=== PATIENT | male | born 1925 | race Caucasian/White ===

== ENCOUNTER 2016-12-20 14:19 | Inpatient (IN) | payer MEDICARE ==
[~2016-12-20] VITALS: Ht 170.2 cm; Wt 85.5 kg
[2016-12-20] VITALS (10 sets, daily range): BP systolic 104–129; BP diastolic 51–80
[~2016-12-20 14:19] MED LIST: ACET-77 PO; AMLO5TAB2 PO; LISI-552 PO; Lisinopril PO; METO-270 PO; Metoprolol Succinate PO; TOLT4CAP13 PO
--- OUTSIDE RECORDS SUMMARY | 2016-12-20 16:08 | XMS REPORT | Continuity of Care Document ---
Author Author [facility] Organization [facility] Address Unknown Phone Unavailable Care Team Providers Care Administrative Services Director Name Role Phone TIMMY RUTLEDGE MD PCP Insurance Providers Payer Name Policy Number Subscriber Name Relationship Self Pay Advance Directives Directive Response Recorded Date/Time Advance Directives Yes 11/07/14 3:40pm Health Care Power of Commercial Pilot Yes 11/07/14 3:40pm Organ Donor No 11/07/14 3:40pm Resuscitation Status DNR-Pt Request 11/07/14 3:40pm Problems No known problems or medical conditions. Medications No known medications. Social History Social History Problem Response Recorded Date/Time Alcohol Use Denies Use 11/07/2014 3:40pm Recreational Drug Use No 11/07/2014 3:40pm Recent Foreign Travel No 11/07/2014 3:32pm Smoking Status Former Smoker 11/07/2014 3:40pm Query Response Start Date Stop Date Smoking Status Former Smoker 11/13/1947 Hospital Discharge Instructions No hospital discharge instructions. Plan of Care No plan of care. Functional Status No functional status results. Allergies, Adverse Reactions, Alerts Allergen Type Severity Reaction Status Last Updated No Known Drug Allergies Active 01/19/09 Immunizations Name Given Type Tetanus Booster (TDap) Unknown Historical Vital Signs Acute Vital Signs Vital Response Date/Time Temperature (Fahrenheit) 99 degrees F (97.6 - 99.5) Temperature (Calculated Celsius) 37.2252 degrees C (36.4 - 37.5) Temperature Source Temporal Pulse Rate (adult) 75 bpm (60 - 90) Respiratory Rate 16 bpm (12 - 24) O2 Sat by Pulse Oximetry 96 % (88 - 100) Blood Pressure 202/106 mm Hg Pain Pain Intensity 0 Height (Feet) 5 feet Height (Inches) 7 inches Height (Calculated Centimeters) 170.887347 cm Weight (Pounds) 190 pounds Weight (Calculated Kilograms) 86.578618 kilograms Calculated BMI 29.75 Results Laboratory Results Test Name Result Units Flags Reference Collection Date/Time Result Date/ Time Comments White Blood Count 5.7 10^3/uL 4.3-11.0 11/07/2014 4:39pm 11/07/2014 4: 51pm Red Blood Count 4.51 10^6/uL 4.35-5.85 11/07/2014 4:39pm 11/07/2014 4: 51pm Hemoglobin 14.8 G/DL 13.3-17.7 11/07/2014 4:39pm 11/07/2014 4:51pm Hematocrit 42 % 40-54 11/07/2014 4:39pm 11/07/2014 4:51pm Mean Corpuscular Volume 93 FL 80-99 11/07/2014 4:39pm 11/07/2014 4: 51pm Mean Corpuscular Hemoglobin 33 PG 25-34 11/07/2014 4:39pm 11/07/2014 4: 51pm Mean Corpuscular Hemoglobin Concent 36 G/DL 32-36 11/07/2014 4:39pm 4:51pm Red Cell Distribution Width 12.5 % 10.0-14.5 11/07/2014 4:39pm 2013 4:51pm Platelet Count 217 10^3/uL 130-400 11/07/2014 4:39pm 11/07/2014 4:51pm Mean Platelet Volume 9.9 FL 7.4-10.4 11/07/2014 4:39pm 11/07/2014 4: 51pm Neutrophils (%) (Auto) 65 % 42-75 11/07/2014 4:39pm 11/07/2014 4:51pm Lymphocytes (%) (Auto) 21 % 12-44 11/07/2014 4:39pm 11/07/2014 4:51pm Monocytes (%) (Auto) 12 % 0-12 11/07/2014 4:39pm 11/07/2014 4:51pm Eosinophils (%) (Auto) 2 % 0-10 11/07/2014 4:39pm 11/07/2014 4:51pm Basophils (%) (Auto) 0 % 0-10 11/07/2014 4:39pm 11/07/2014 4:51pm Neutrophils # (Auto) 3.7 X 10^3 1.8-7.8 11/07/2014 4:39pm 11/07/2014 4: 51pm Lymphocytes # (Auto) 1.2 X 10^3 1.0-4.0 11/07/2014 4:39pm 11/07/2014 4: 51pm Monocytes # (Auto) 0.7 X 10^3 0.0-1.0 11/07/2014 4:39pm 11/07/2014 4: 51pm Eosinophils # (Auto) 0.1 10^3/uL 0.0-0.3 11/07/2014 4:39pm 11/07/2014 4 :51pm Basophils # (Auto) 0.0 10^3/uL 0.0-0.1 11/07/2014 4:39pm 11/07/2014 4: 51pm Urine Color YELLOW 11/07/2014 5:25pm 11/07/2014 5:38pm Urine Clarity CLEAR 11/07/2014 5:25pm 11/07/2014 5:38pm Urine pH 8 5-9 11/07/2014 5:25pm 11/07/2014 5:38pm Urine Specific [place] 1.010 * 1.016-1.022 11/07/2014 5:25pm 2013 5:38pm Urine Protein NEGATIVE NEGATIVE 11/07/2014 5:25pm 11/07/2014 5:38pm Urine Glucose (UA) NEGATIVE NEGATIVE 11/07/2014 5:25pm 11/07/2014 5: 38pm Urine RBC (Auto) NEGATIVE NEGATIVE 11/07/2014 5:25pm 11/07/2014 5: 38pm Urine Ketones NEGATIVE NEGATIVE 11/07/2014 5:25pm 11/07/2014 5:38pm Urine Nitrite NEGATIVE NEGATIVE 11/07/2014 5:25pm 11/07/2014 5:38pm Urine Bilirubin NEGATIVE NEGATIVE 11/07/2014 5:25pm 11/07/2014 5: 38pm Urine Urobilinogen NORMAL MG/DL NORMAL 11/07/2014 5:25pm 11/07/2014 5: 38pm Urine Leukocyte Esterase NEGATIVE NEGATIVE 11/07/2014 5:25pm 2013 5:38pm Urine RBC NONE /HPF 11/07/2014 5:25pm 11/07/2014 5:38pm Urine WBC NONE /HPF 11/07/2014 5:25pm 11/07/2014 5:38pm Urine Bacteria NEGATIVE /HPF 11/07/2014 5:25pm 11/07/2014 5:38pm Urine Squamous Epithelial Cells NONE /HPF 11/07/2014 5:25pm 2013 5:38pm Urine Crystals NONE /LPF 11/07/2014 5:25pm 11/07/2014 5:38pm Urine Casts NONE /LPF 11/07/2014 5:25pm 11/07/2014 5:38pm Urine Mucus NEGATIVE /LPF 11/07/2014 5:25pm 11/07/2014 5:38pm Urine Culture Indicated NO 11/07/2014 5:25pm 11/07/2014 5:38pm Sodium Level 139 MMOL/L 135-145 11/07/2014 4:39pm 11/07/2014 5:08pm Potassium Level 3.9 MMOL/L 3.6-5.0 11/07/2014 4:39pm 11/07/2014 5:08pm Chloride Level 106 MMOL/L 98-107 11/07/2014 4:39pm 11/07/2014 5:08pm Carbon Dioxide Level 23 MMOL/L 21-32 11/07/2014 4:39pm 11/07/2014 5: 08pm Blood Urea Nitrogen 13 MG/DL 7-18 11/07/2014 4:39pm 11/07/2014 5:08pm Creatinine 0.79 MG/DL 0.60-1.30 11/07/2014 4:39pm 11/07/2014 5:08pm BUN/Creatinine Ratio 16 11/07/2014 4:39pm 11/07/2014 5:08pm Estimat Glomerular Filtration Rate > 60 11/07/2014 4:39pm 2013 5:08pm GFR INTERPRETIVE DATA UNITS FOR ESTIMATED GFR (eGFR): mL/min/1.73 M2 REFERENCE RANGE FOR ESTIMATED GFR (eGFR) eGFR NORMAL eGFR >60 MODERATELY DECREASED eGFR 30-59 SEVERLY DECREASED eGFR 15-29 KIDNEY FAILURE <15 (OR DIALYSIS) Glucose Level 94 MG/DL 70-105 11/07/2014 4:39pm 11/07/2014 5:08pm Calcium Level 9.0 MG/DL 8.5-10.1 11/07/2014 4:39pm 11/07/2014 5:08pm Total Bilirubin 0.5 MG/DL 0.1-1.0 11/07/2014 4:39pm 11/07/2014 5:08pm Alkaline Phosphatase 90 U/L 40-136 11/07/2014 4:39pm 11/07/2014 5:08pm Aspartate Amino Transf (AST/SGOT) 18 U/L 5-34 11/07/2014 4:39pm 2013 5:08pm Alanine Aminotransferase (ALT/SGPT) 13 U/L 0-55 11/07/2014 4:39pm 11/07 5:08pm Total Protein 6.8 G/DL 6.4-8.2 11/07/2014 4:39pm 11/07/2014 5:08pm Albumin 3.7 G/DL 3.2-4.5 11/07/2014 4:39pm 11/07/2014 5:08pm Procedures No known history of procedures. Encounters Encounter Location Date/Time Departed Emergency Room [facility] 11/07/14 2:39pm Recent Diagnosis
--- NOTE | 2016-12-20 16:11 | Consultation-Cardiology ---
HPI-Cardiology Cardiology Consultation: Date of Consultation 12/20/16 Date of Admission 12-20-16 Attending Physician Lamonte Paz MD [facility] Admitting Physician Cheryl Christianson MD Consulting Physician CHELITA IGLESIAS HPI: Chief Complaint: STEMI Mr. Valdes is an 89 year old male who presented to the ED at [facility] d/t increasing weakness and poor oral intake for several days. Does recall some chest discomfort more than 48 hours ago. None since. Lab at [facility] showed an elevated troponin and EKG showed STEMI. He has been transferred to ICU 10. He denies any c/o CP, dyspnea, syncope, near syncope or LE edema. He states other than increasing generalized weakness he has been feeling fine. Review of Systems-Cardiology Review of Systems Constitutional: As described under HPI Eyes: No blurred vision, No drainage, No pain, other (blind in right eye)No vision change Ears/Nose/Throat: No ear discharge, No ear pain, No nasal drainage, No ulcerations Respiratory: As described under HPI Cardiovascular: As described under HPI Gastrointestinal: No constipation, diarrheaNo nausea, No vomiting, No stool coloration changes Genitourinary: No dysuria, No discharge, No frequency, No hematuria, No urgency Skin: No rash, No skin related problems, No ulcerations Psychiatric/Neurological: No anxiety, No depression, No focal weakness, No seizure, No syncope Hematologic: No bleeding abnormalities DVY-Csmoha-Qxoptj Hx Patient Social History Recent Foreign Travel: No Immunizations Up To Date Tetanus Booster (TDap): Unknown Date of Pneumonia Vaccine: Dec 12, 2014 Date of Influenza Vaccine: Dec 12, 2014 Past Medical History PMH As described under Assessment. Family Medical History Family History: Patient reports no known family medical history. Allergies and Home Medications Allergies Coded Allergies: No Known Drug Allergies (Verified , 01/19/09) Home Medications Acetaminophen 500 Mg Tablet #100 500 MG PO Q4H PRN PRN MILD PAIN Prescribed by: TIMMY RUTLEDGE on 03/01/16 1201 Amlodipine Besylate 5 Mg Tablet #30 5 MG PO DAILY Prescribed by: TIMMY RUTLEDGE on 03/01/16 1201 Lisinopril 20 Mg Tablet 20 MG PO DAILY (Reported) Metoprolol Succinate 25 Mg Tab.er.24h 25 MG PO DAILY (Reported) Physical Exam-Cardiology Physical Exam Vital Signs/I&O Capillary Refill : Constitutional: appears stated ageNo apparent distress, well-developed well- nourished HEENT: PERRLNo discharge, hearing is well preserved oral hygience is goodNo ulceration, No xanthelasmas are seen Neck: No carotid bruit, carotid pulses are 2 + bilaterally Respiratory: No accessory muscle use, No respiratory distress, chest expansion is symmetric chest is bilaterally symmetric lungs clear to percussion lungs clear to auscultation Cardiovascular: regular rate-rhythm S1 and S2 Gastrointestinal: No tender, soft roundNo spleenomegaly Extremities: No clubbing, No cyanosis, No significant edema Neurologic/Psychiatric: alert oriented x 3 power is 5/5 both on sides Skin: No rash, No ulcerations Data Review Labs Labs from [facility] on 12-20-16 reviewed Radiology CXR from 12-20-16 at [facility] reviewed which showed normal PA and lateral chest x-ray ECG Impression ECG Comment STEMI A/P-Cardiology Assessment/Admission Diagnosis STEMI, subacute, index event more than 48 hours ago - family/pt desires conservative and empiric therapy H/O HTN H/O BPH - follows with Dr. Hermosillo Renal insufficiency, probably acute due to prerenal azotemia due to poor oral intake in the recent past Legal blindness Chronic hardness of hearing Discussion and Recomendations STEMI for which pt and family desire empiric and conservative tx. We will continue BB, ASA, Plavix. We will add stain and DARION (-). Echocardiogram to evaluate structure and LVEF. D/C IV Heparin and change to Lovenox subcut q 12hrs. Monitor lab closely. Further recommendations will be based on his hospital course. This consult is being scribed by LINUS Wagner on behalf of Dr. Paz after discussion regarding plan of care. Physician Assessment Physician Assessment Lungs: good bilat air entry, but diminished at the bases Cor: reg A&R * As documented in our note above * Complex management * I discussed his CV issues with him and his . They request conservative therapy. This appears appropriate to do * Monitor closely clinically and titrate meds to heart rate and bp * Encourage oral intake; meanwhile, cautious rehydration * Further recs to be based on his hosp course CHELITA WAGNER WEIGHT TRAINER Dec 20, 2016 16:11 [facility] Dec 20, 2016 17:19
[2016-12-20] MEDS: NS IV 1000 ML 1,000 ML IV SCH (17:24)
[2016-12-20] MEDS ORDERED: FLU TRIvalent (5 YOA+) 2016-17 (AFLURIA) 0.5 ML IM ONE (18:15)
[2016-12-20] MEDS: ENOXAPARIN 80 MG/0.8 ML (LOVENOX) SYR SC SCH (18:18)
[2016-12-20] MEDS: ENALAPRIL 5 MG (VASOTEC) TAB PO SCH (22:10)
[2016-12-20] MEDS: meTOprolol TARTRATE 25 MG (LOPRESSOR) TABLET PO SCH (22:10)
[2016-12-20] MEDS: ATORVASTATIN 20 MG (LIPITOR) TABLET PO SCH (22:10)
[2016-12-21] VITALS (25 sets, daily range): BP systolic 108–155; BP diastolic 54–89
[2016-12-21 04:31] LABS: MEAN PLATELET VOLUME 11.1 FL (7.4-10.4); RED BLOOD COUNT 3.56 10^6/uL (4.35-5.85); RED CELL DISTRIBUTION WIDTH 12.3 % (10.0-14.5); WHITE BLOOD COUNT 6.5 10^3/uL (4.3-11.0)
[2016-12-21 04:59] LABS: ALANINE AMINOTRANSFERASE 20 U/L (0-55); ANION GAP 11 MMOL/L (5-14); ASPARTATE AMINO TRANSFERASE 37 U/L (5-34); BILIRUBIN,TOTAL 0.9 MG/DL (0.1-1.0); BLOOD UREA NITROGEN 28 MG/DL (7-18); BUN/CREATININE RATIO 29; CALCIUM 8.3 MG/DL (8.5-10.1); CARBON DIOXIDE 21 MMOL/L (21-32); CHLORIDE 108 MMOL/L (98-107); CHOLESTEROL 112 MG/DL (< 200); CREATININE SERUM 0.95 MG/DL (0.60-1.30); DIRECT LDL 81 MG/DL (1-129); GFR ESTIMATED > 60; GLUCOSE 83 MG/DL (70-105); MAGNESIUM 2.1 MG/DL (1.8-2.4); POTASSIUM 3.3 MMOL/L (3.6-5.0); SODIUM 140 MMOL/L (135-145); TOTAL PROTEIN 5.5 G/DL (6.4-8.2); TRIGLYCERIDES 75 MG/DL (<150); VLDL CHOLESTEROL 15 MG/DL (5-40)
[2016-12-21] MEDS: ENOXAPARIN 80 MG/0.8 ML (LOVENOX) SYR SC SCH ×2 (06:19→17:19)
[2016-12-21] MEDS ORDERED: CATHETER FLUSH 10 ML SYR IV PRN (07:30)
[2016-12-21] MEDS ORDERED: CETI10TA17 PO (08:49)
[2016-12-21] MEDS ORDERED: AMLO5TAB2 PO (08:49)
[2016-12-21] MEDS ORDERED: ASPIRIN 325 MG (5 GR) TABLET PO SCH (09:00)
[2016-12-21] MEDS: meTOprolol TARTRATE 25 MG (LOPRESSOR) TABLET PO SCH ×2 (09:27→20:33)
[2016-12-21] MEDS: NS IV 1000 ML 1,000 ML IV SCH (09:27)
[2016-12-21] MEDS: ENALAPRIL 5 MG (VASOTEC) TAB PO SCH ×2 (09:28→20:33)
[2016-12-21] MEDS: ASPIRIN 81 MG CHEW (CHILDREN'S ASA) PO SCH (09:28)
[2016-12-21] MEDS: CLOPIDOGREL 75 MG (PLAVIX) TABLET PO SCH (09:28)
--- NOTE | 2016-12-21 11:03 | Progress Note-Cardiology ---
Cardiology SOAP Progress Note Subjective: In bed. No c/o CP, dyspnea, palpitations. States he feels good. Objective: I&O/Vital Signs Vital Sign - Last 12Hours 12/21/16 12/21/16 12/21/16 12/21/16 06:21 07:00 08:00 09:00 Temp 101.0 99.3 Pulse 70 71 Resp 16 B/P 129/64 O2 Delivery Nasal Cannula O2 Flow Rate 2.00 2.00 12/21/16 12/21/16 12/21/16 12:00 13:00 13:25 Temp 99.9 Pulse 64 O2 Flow Rate 2.00 Intake and Output 12/21/16 00:00 Intake Total 360 ml Output Total 50 ml Balance 310 ml Weight (Pounds): 188 Weight (Ounces): 9.0 Weight (Calculated Kilograms): 85.776277 Constitutional: appears stated ageNo apparent distress, well-developed well- nourished Respiratory: No accessory muscle use, No respiratory distress, chest expansion is symmetric chest is bilaterally symmetric lungs clear to percussion lungs clear to auscultation Cardiovascular: regular rate-rhythm S1 and S2 Gastrointestional: No tender, soft roundNo spleenomegaly Genital/Rectal: other (dysuria) Extremities: No clubbing, No cyanosis, No significant edema Neurologic/Psychiatric: alert oriented x 3 power is 5/5 both on sides Skin: No rash, No ulcerations Results/Procedures: Labs Laboratory Tests 12/21/16 03:53: Alanine Aminotransferase (ALT/SGPT) 20, Albumin 3.0L, Alkaline Phosphatase 62, Anion Gap 11, Aspartate Amino Transf (AST/SGOT) 37H, BUN/Creatinine Ratio 29, Blood Urea Nitrogen 28H, Calcium Level 8.3L, Carbon Dioxide Level 21, Chloride Level 108H, Cholesterol Level 112, Creatinine 0.95, Estimat Glomerular Filtration Rate > 60, Glucose Level 83, HDL Cholesterol 25L, Hematocrit 33L, Hemoglobin 11.8L, LDL Cholesterol Direct 81, Magnesium Level 2.1, Mean Corpuscular Hemoglobin 33, Mean Corpuscular Hemoglobin Concent 36, Mean Corpuscular Volume 93, Mean Platelet Volume 11.1H, Platelet Count 158, Potassium Level 3.3L, Red Blood Count 3.56L, Red Cell Distribution Width 12.3, Sodium Level 140, Total Bilirubin 0.9, Total Protein 5.5L, Triglycerides Level 75, VLDL Cholesterol 15, White Blood Count 6.5 12/21/16 11:45: Urine Bacteria FEWH, Urine Bilirubin 1+H, Urine Casts NONE, Urine Clarity SLIGHTLY CLOUDY, Urine Color YELLOW, Urine Crystals NONE, Urine Culture Indicated YES, Urine Glucose (UA) NEGATIVE, Urine Ketones 2+H, Urine Leukocyte Esterase 3+H, Urine Mucus LARGEH, Urine Nitrite NEGATIVE, Urine Protein 2+H, Urine RBC 10-25H, Urine RBC (Auto) 5+H, Urine Specific [place] 1.025H, Urine Squamous Epithelial Cells 5-10, Urine Urobilinogen 4H, Urine WBC 5-10H, Urine pH 5 A/P: Assessment: STEMI, subacute, index event more than 48 hours ago - family/pt desires conservative and empiric therapy H/O HTN H/O BPH - follows with Dr. Hermosillo Dysuria Renal insufficiency, probably acute due to prerenal azotemia due to poor oral intake in the recent past Legal blindness Chronic hardness of hearing Plan: STEMI for which pt and family desire empiric and conservative tx. We will continue BB, ASA, Plavix. We continue statin and DARION (-). Echocardiogram to evaluate structure and LVEF Dysuria with urinary retention and h/o BPH - insert wilson cath (Bladder scan showed 500 ml after urinating only 10 ml) - may need to consider consulting urology Monitor lab Physician Assessment Physician Assessment Lungs: good bilat air entry Cor: reg A&R * As documented in our note above * UA consistent with UTI. Med cons for management * I spoke with him and his in detail and answered questions CHELITA WAGNER Dec 21, 2016 11:02 GEOVANNI MORALES MD FACP [facility]S Dec 21, 2016 18:03 Legal blindness Chronic hardness of hearing Plan: STEMI for which pt and family desire empiric and conservative tx. We will continue BB, ASA, Plavix. We continue statin and DARION (-). Echocardiogram to evaluate structure and LVEF Dysuria with urinary retention and h/o BPH - insert wilson cath (Bladder scan showed 500 ml after urinating only 10 ml) - may need to consider consulting urology Monitor lab CHELITA WAGNER Dec 21, 2016 11:02
[2016-12-21 15:37] LABS: KETONES,URINE 2+ (NEGATIVE); LEUKOCYTE ESTERASE ,URINE 3+ (NEGATIVE); NITRITE,URINE NEGATIVE (NEGATIVE); PH,URINE 5 (5-9); PROTEIN,URINE 2+ (NEGATIVE); UROBILINOGEN,URINE 4 MG/DL (NORMAL)
[2016-12-21 15:42] LABS: BILIRUBIN,URINE 1+ (NEGATIVE)
[2016-12-21] MEDS ORDERED: LEVOFLOXACIN 500 MG TAB (LEVAQUIN) PO ONE (17:15)
[2016-12-21] MEDS ORDERED: LEVOFLOXACIN 500 MG/100 ML IV 100 ML IV ONE (17:15)
[2016-12-21] MEDS: ATORVASTATIN 20 MG (LIPITOR) TABLET PO SCH (20:32)
[2016-12-22] VITALS (11 sets, daily range): BP systolic 109–160; BP diastolic 54–94
[2016-12-22] MEDS: ACETAMINOPHEN 500 MG TAB (TYLENOL) PO PRN ×2 (03:37→20:00)
[2016-12-22] MEDS: NS IV 1000 ML 1,000 ML IV SCH ×2 (04:30→07:38)
[2016-12-22] MEDS: ENOXAPARIN 80 MG/0.8 ML (LOVENOX) SYR SC SCH (05:18)
--- NOTE | 2016-12-22 07:22 | Consultation ---
History of Present Illness History of Present Illness Patient Consulted On(delon/time) 12/22/16 07:20 Date of Admission 12/20/16 Reason for Visit: ACUTE STEMI History of Present Illness PT IS AN 89 Y/O MALE WHO WAS ADMITTED BY CARDIOLOGY SERVICES FOR ACUTE MYOCARDIAL INFARCTION. APPARENTLY HE HAD BEEN FEELING POORLY FOR SEVERAL DAYS, HAD NOT BEEN EATING OR DRINKING WELL, PRESENTED TO THE EMERGENCY DEPT IN [place] WHERE HE WAS FOUND TO HAVE AN ACUTE STEMI AND TRANSFERRED INTO DR. MORALES'S CARE FOR FURTHER CARDIAC WORK-UP. I WAS CONSULTED AFTER HIS URINE WAS FOUND TO BE ACUTELY INFECTED AND FOR MEDICAL MANAGEMENT OF HIS ACUTE INFECTIOUS ILLNESS. Allergies and Home Medications Allergies Coded Allergies: No Known Drug Allergies (Verified , 01/19/09) Home Medications Amlodipine Besylate 5 Mg Tablet 5 MG PO DAILY (Reported) Cetirizine HCl 10 Mg Tablet 10 MG PO DAILY (Reported) Lisinopril 20 Mg Tablet 20 MG PO DAILY (Reported) Metoprolol Succinate 25 Mg Tab.er.24h 25 MG PO DAILY (Reported) Past Anrptag-Foetcf-Piymae Hx Patient Social History Alcohol Use: Denies Use Recreational Drug Use: No Recent Foreign Travel: No Contact w/Someone Who Travel: No Recent Hopitalizations: Yes Physical Abuse Screen: No Sexual Abuse: No Immunizations Up To Date Tetanus Booster (TDap): Unknown PED Vaccines UTD: No Date of Pneumonia Vaccine: Dec 21, 2015 Date of Influenza Vaccine: Dec 12, 2014 Seasonal Allergies Seasonal Allergies: No Surgeries HX Surgeries: Yes (CYTOSCOPY WITH STRETCHING 12/01/2014) Surgeries: Bladder Surgery, Prostatectomy Respiratory Hx Respiratory Disorders: No Cardiovascular Hx Cardiac Disorders: Yes Cardiac Disorders: Hypertension Neurological Hx Neurological Disorders: No Reproductive System Hx Reproductive Disorders: No Sexually Transmitted Disease: No HIV/AIDS: No Genitourinary Hx Genitourinary Disorders: Yes Genitourinary Disorders: Prostate Problems Gastrointestinal Hx Gastrointestinal Disorders: No Gastrointestinal Disorders: Gastroesophageal Reflux Musculoskeletal Hx Musculoskeletal Disorders: Yes Musculoskeletal Disorders: Arthritis Endocrine Hx Endocrine Disorders: No HEENT HX ENT Disorders: Yes Loss of Vision: Right Hearing Impairment: Hard of Hearing Cancer Hx Cancer: No Psychosocial Hx Psychiatric Problems: No Integumentary HX Skin/Integumentary Disorder: No Blood Transfusions Hx Blood Disorders: No Adverse Reaction to a Blood Tr: No Reviewed Nursing Assessment Reviewed/Agree w Nursing PMH: Yes Family Medical History Significant Family History: No Pertinent Family Hx Family Medial History: Patient reports no known family medical history. Review of Systems-General Constitutional: No chills, No fever, malaise weakness EENTM: No hoarseness, No mouth pain, No throat pain Respiratory: No cough, No dyspnea on exertion Cardiovascular: No chest pain, No edema Gastrointestinal: No abdominal pain, No constipation, No diarrhea Genitourinary: incontinence Musculoskeletal: No back pain, muscle weakness (GENERALIZED) Skin: no symptoms reported Psychiatric/Neurological: Denies Anxiety, Denies Depressed, Other (DEMENTIA) All Other Systems Reviewed Negative Unless Noted: Yes Physical Exam-General Problems Physical Exam Vital Signs Vital Sign - Last 12Hours 12/20/16 14:45 Temp 99.0 Pulse 62 Resp 10 B/P 129/80 Pulse Ox 96 O2 Delivery Nasal Cannula O2 Flow Rate 2.00 Capillary Refill : Less Than 3 Seconds General Appearance: WD/WN Eyes: Bilateral Eye EOMI, Bilateral Eye Normal Inspection, Bilateral Eye PERRL HEENT: PERRL/EOMI pharynx normal Neck: non-tender Respiratory: chest non-tender lungs clear normal breath sounds Cardiovascular: regular rate, rhythm Gastrointestinal: normal bowel sounds non tender soft no organomegaly no pulsatile mass Rectal: deferred Back: normal inspection Extremities: non-tender normal capillary refill Neurologic/Psychiatric: alert normal mood/affect other (ORIENTED TO PERSON) Skin: warm/dry Lymphatic: no adenopathy Assessment/Plan Assessment/Plan Admission Diagnosis/Plan STEMI HYPERTENSION URINARY TRACT INFECTION FEVER DEMENTIA WEAKNESS STEMI AND HTN - DEFER TREATMENT TO DR. MORALES - CONTINUE MEDICAL MANAGEMENT INSTEAD OF INTERVENTIONAL TREATMENT. UTI - PT TO CONTINUE WITH LEVAQUIN ORALLY - 1ST DOSE GIVEN YESTERDAY IV FEVER - MONITOR PT HAS TREATMENT OF UTI DEMENTIA AND WEAKNESS - CONTINUE WITH PLANS FOR SENIOR CARE PLACEMENT FOR STRENGTHENING/THERAPIES. Clinical Quality Measures DVT/VTE Risk/Contraindication: Risk Factor Score Per Nursin RFS Level Per Nursing on Admit: 4+=Very High JOHN GERMAN MD Dec 22, 2016 07:22
[2016-12-22 07:58] LABS: MEAN PLATELET VOLUME 10.3 FL (7.4-10.4); RED BLOOD COUNT 3.91 10^6/uL (4.35-5.85); RED CELL DISTRIBUTION WIDTH 12.1 % (10.0-14.5); WHITE BLOOD COUNT 5.7 10^3/uL (4.3-11.0)
[2016-12-22 08:29] LABS: ALANINE AMINOTRANSFERASE 21 U/L (0-55); ALBUMIN 3.3 G/DL (3.2-4.5); ANION GAP 8 MMOL/L (5-14); ASPARTATE AMINO TRANSFERASE 30 U/L (5-34); BILIRUBIN,TOTAL 0.8 MG/DL (0.1-1.0); BLOOD UREA NITROGEN 20 MG/DL (7-18); BUN/CREATININE RATIO 24; CALCIUM 8.7 MG/DL (8.5-10.1); CARBON DIOXIDE 22 MMOL/L (21-32); CHLORIDE 109 MMOL/L (98-107); CREATININE SERUM 0.82 MG/DL (0.60-1.30); GFR ESTIMATED > 60; GLUCOSE 102 MG/DL (70-105); POTASSIUM 3.4 MMOL/L (3.6-5.0); SODIUM 139 MMOL/L (135-145); TOTAL PROTEIN 6.1 G/DL (6.4-8.2)
--- NOTE | 2016-12-22 08:55 | Progress Note-Cardiology ---
Cardiology SOAP Progress Note Subjective: No c/o CP, dyspnea, palpitations, syncope or near syncope. Objective: I&O/Vital Signs Vital Sign - Last 12Hours 12/21/16 12/22/16 12/22/16 12/22/16 23:00 00:00 00:48 01:00 Pulse 67 67 75 Resp 24 26 12 B/P 118/57 128/64 130/73 Pulse Ox 95 95 93 93 O2 Delivery Room Air Room Air Room Air 12/22/16 12/22/16 12/22/16 12/22/16 01:00 01:17 02:00 03:00 Temp 99.5 Pulse 75 72 87 Resp 22 17 B/P 143/79 147/71 Pulse Ox 95 93 O2 Delivery Room Air Room Air 12/22/16 12/22/16 12/22/16 12/22/16 03:19 03:19 03:37 04:00 Temp 100.2 100.2 Pulse 71 Resp 21 B/P 142/62 Pulse Ox 93 93 O2 Delivery Room Air 12/22/16 12/22/16 12/22/16 05:18 05:19 07:00 Temp 99.7 99.7 Pulse 61 Intake and Output 12/22/16 00:00 Intake Total 600 ml Output Total 730 ml Balance -130 ml Weight (Pounds): 188 Weight (Ounces): 9.0 Weight (Calculated Kilograms): 85.558746 Constitutional: appears stated ageNo apparent distress, well-developed well- nourished Respiratory: No accessory muscle use, No respiratory distress, chest expansion is symmetric chest is bilaterally symmetric lungs clear to percussion lungs clear to auscultation Cardiovascular: regular rate-rhythm S1 and S2 Gastrointestional: No tender, soft roundNo spleenomegaly Genital/Rectal: other (dysuria) Extremities: No clubbing, No cyanosis, No significant edema Neurologic/Psychiatric: alert oriented x 3 power is 5/5 both on sides Skin: No rash, No ulcerations Results/Procedures: Labs Laboratory Tests 12/21/16 11:45: Urine Bacteria FEWH, Urine Bilirubin 1+H, Urine Casts NONE, Urine Clarity SLIGHTLY CLOUDY, Urine Color YELLOW, Urine Crystals NONE, Urine Culture Indicated YES, Urine Glucose (UA) NEGATIVE, Urine Ketones 2+H, Urine Leukocyte Esterase 3+H, Urine Mucus LARGEH, Urine Nitrite NEGATIVE, Urine Protein 2+H, Urine RBC 10-25H, Urine RBC (Auto) 5+H, Urine Specific [place] 1.025H, Urine Squamous Epithelial Cells 5-10, Urine Urobilinogen 4H, Urine WBC 5-10H, Urine pH 5 12/22/16 07:45: Alanine Aminotransferase (ALT/SGPT) 21, Albumin 3.3, Alkaline Phosphatase 68, Anion Gap 8, Aspartate Amino Transf (AST/SGOT) 30, BUN/Creatinine Ratio 24, Blood Urea Nitrogen 20H, Calcium Level 8.7, Carbon Dioxide Level 22, Chloride Level 109H, Creatinine 0.82, Estimat Glomerular Filtration Rate > 60, Glucose Level 102, Hematocrit 36L, Hemoglobin 13.2L, Mean Corpuscular Hemoglobin 34, Mean Corpuscular Hemoglobin Concent 36, Mean Corpuscular Volume 93, Mean Platelet Volume 10.3, Platelet Count 178, Potassium Level 3.4L, Red Blood Count 3.91L, Red Cell Distribution Width 12.1, Sodium Level 139, Total Bilirubin 0.8, Total Protein 6.1L, White Blood Count 5.7 Microbiology 12/21/16 Urine Culture - Preliminary, Resulted NO GROWTH A/P: Assessment: STEMI, subacute, index event more than 48 hours prior to admission - family/pt desires conservative and empiric therapy UTI - medical services for management H/O HTN H/O BPH - follows with Dr. Hermosillo Dysuria Renal insufficiency, probably acute due to prerenal azotemia due to poor oral intake in the recent past Legal blindness Chronic hardness of hearing Plan: STEMI for which pt and family desire empiric and conservative tx. We will continue BB, ASA, Plavix. BP has improved, we will increase DARION (-) Echocardiogram to evaluate structure and LVEF - pending Dysuria with urinary retention and h/o BPH and UTI - medical services consulted , we would like to thank Dr. Christianson for her assistance Physician Assessment Physician Assessment Lungs: good air entry Cor: reg, no new murmur Echo yesterday: LVEF 40-45% A&P * As documented in our note above * I spoke with him and and his and explained management plan * Soc Svces on board for discharge and placement planning * Appreciate Dr Christianson's assistance CHELITA WAGNER [facility] Dec 22, 2016 08:55 GEOVANNI MORALES MD FACP [facility]AC [facility]S Dec 22, 2016 10:03 CHELITA WAGNER VISITOR SERVICES ASSISTANT Dec 22, 2016 08:55
--- NOTE | 2016-12-22 09:08 | Physical Therapy Evaluation ---
PT Evaluation-General Medical Diagnosis Admission Date Dec 20, 2016 at 15:30 Medical Diagnosis: FL/UTI Onset Date: Dec 20, 2016 Therapy Diagnosis Therapy Diagnosis: general debility/weakness Height/Weight Height (Feet): 5 Height (Inches): 7.00 Weight (Pounds): 188 Weight (Ounces): 9.0 Precautions Precautions/Isolations: Fall Prevention, Standard Precautions, Pressure Ulcer Referral Physician: Sammy Reason for Referral: Evaluation/Treatment Medical History Pertinent Medical History: Arthritis, HTN Additional Medical History ill x several days Current History per spouse, patient was in geripsych in [place] due to depression Reviewed History: Yes Social History Home: Single Level Current Living Status: Spouse spouse reports she is unable to continue taking care of him Prior/Core FIM Prior Level of Function Functional [place] Measure 0=Not Assessed/NA 4=Minimal Assistance 1=Total Assistance 5=Supervision or Setup 2=Maximal Assistance 6=Modified [place] 3=Moderate Assistance 7=Complete [place] Bed Mobility: 5 Transfers (B,C,W/C) (FIM): 5 Gait: 1 ambulates short distances PLOF; per spouse, patient is very inactive at home PT Evaluation-Current Subjective Patient reluctantly agrees to PT. Pain Numeric Pain Scale: 0-No Pain Location: No Pain Reported Objective Patient Orientation: Confused Problem Solving: Fair Attachments: Sarmiento Catheter, IV ROM/Strength ROM Lower Extremities bilateral LE WFL Strenght Lower Extremities right knee flexion/extension 3/5; hip flexion; 3/5; ankle dorsi/plantarflexion 3 /5 left knee flexion/extension 3/5; hip flexion 3/5; ankle dorsi/plantarflexion 3/5 Integumentary/Posture Integumentary refer to nursing notes Bladder Incontinence: Sarmiento Cath Posture kyphotic Neuromuscular (Tone, Coordination, Reflexes) diminished coordination due to age and inactivity Sensory Vision: Functional Hearing: Impaired Sensation Right Lower Extremit: Intact Sensation Left Lower Extremity: Intact Transfers Functional [place] Measure 0=Not Assessed/NA 4=Minimal Assistance 1=Total Assistance 5=Supervision or Setup 2=Maximal Assistance 6=Modified [place] 3=Moderate Assistance 7=Complete [place] Transfers (B, C, W/C) (FIM): 4 Scootin Rollin Supine to/from Sit: 4 Sit to/from Stand: 4 minimal assist with all mobility Gait Mode of Locomotion: Both Anticipated Mode of Locomotion: Both Gait (FIM): 1 Distance (FIM): 1=up to 49 ft Distance: 5' Gait Level of Assist: 4 Gait Persons Needed: 1 Gait Assistive Device: FWW Comments/Gait Description shuffle gait sequence Balance Sitting Static: Fair Sitting Dynamic: Fair Standing Static: Fair Standing Dynamic: Fair Treatment noted decrease in SAO2 61% on RA with activity with patient not displaying signs /symptoms of SOA or distress Assessment/Needs 89 y.o. male, will benefit from short term skilled PT to address functional strength and mobility to improve current LOF. Spouse reports she is unable to continue to care for patient in the home. Rehab Potential: Fair Post Rehab Potential-Barriers: confusion;inactivity PT Choral Teacher Goals Long-Term Goals PT Choral Teacher Goals Time Frame: Dec 29, 2016 Transfers (B,C,W/C) (FIM): 5 Gait (FIM): 2 Gait distance (FIM): 7=677-90 ft Distance: 50' Gait Level of Assist: 5 Gait Assistive Device: FWW PT Plan Problem List Problem List: Activity Tolerance, Functional Strength, Safety, Gait, Bed Mobility Treatment/Plan Treatment Plan: Continue Plan of Care Treatment Plan: Bed Mobility, Education, Functional Activity [place], Functional Strength, Gait, Safety, Therapeutic Exercise, Transfers Treatment Duration: Dec 29, 2016 # of days/week 5-6 Visits Per Week: 5-6 Pt/Family Agrees w/Plan: Yes Safety Risks/Education Patient Education: Safety Issues Teaching Recipient: Patient, Significant Other Teaching Methods: Discussion Response to Teaching: Verbalize Understanding Discharge Recommendations Therapy D/C Recommendations: Group Home Placement, Detention (TCU/NH) Time/GCodes Time In: 815 Time Out: 835 Total Billed Treatment Time: 20 Total Billed Treatment 1 visit EVModC 20 min G Codes Necessary: SARA Castellano PT Dec 22, 2016 09:08
[2016-12-22] MEDS: meTOprolol TARTRATE 25 MG (LOPRESSOR) TABLET PO SCH ×2 (09:43→20:00)
[2016-12-22] MEDS: ENALAPRIL 10 MG (VASOTEC) TAB PO SCH ×2 (09:43→20:00)
[2016-12-22] MEDS: ASPIRIN 81 MG CHEW (CHILDREN'S ASA) PO SCH (09:43)
[2016-12-22] MEDS: CLOPIDOGREL 75 MG (PLAVIX) TABLET PO SCH (09:43)
[2016-12-22] MEDS: LEVOFLOXACIN 500 MG TAB (LEVAQUIN) PO SCH (11:02)
--- NOTE | 2016-12-22 15:56 | Occupational Therapy Eval ---
OT Evaluation-General/PLF Medical Diagnosis Admission Date Dec 20, 2016 at 15:30 Medical Diagnosis: ID/UTI Onset Date: Dec 20, 2016 Therapy Diagnosis Therapy Diagnosis: Weakness, Decreased ADL skills Height/Weight Height (Feet): 5 Height (Inches): 7.00 Weight (Pounds): 188 Weight (Ounces): 9.0 Precautions Precautions/Isolations: Fall Prevention, Standard Precautions, Pressure Ulcer Safety Interventions: None Weight Bear Status Weight Bearing Restriction: Weight Bearing/Tolerated Referral Physician: Sammy Referral Reason: Activity Tolerance, Self Care, Evaluation/Treatment, Strengthening/ROM Medical History Pertinent Medical History: Arthritis, HTN Additional Medical History Dysuria, legal blindness, cystoscopy with stretching, prostatectomy Current History Pt. is poor historian. However, he does state that his spouse assists him with all his ADLs, including bathing and dressing. Reviewed History: Yes Social History Home: Single Level Current Living Status: Spouse Entry Into Home: Stairs With Railing Steps Into Home: 4 (Per pt.) ADL-Prior Level of Function ADL PLOF Comments Pt. states that he was needing assist from his with showering and dressing.. DME/Equipment: Bath Chair, Tub/Shower DME/Equipment Comments Pt. states that he has a walker, but is not able to state any other equipment that he has. Drive Self: No OT Current Status Subjective Pt. is unable to state a pain level. Appearance Pt. is in bed. Agrees to work with OT. Mental Status/Objective Patient Orientation: Unable to Assess Current Hand Dominance: Right Upper Extremity ROM Pt. is able to flex bilateral shoulders to approximately 45 degrees in bed. Is able to flex bilateral elbows and wrists WFL. Upper Extremity Strength 2+/5 shoulder strength bilaterally ADL-Treatment Functional [place] Measure 0=Not Assessed/NA 4=Minimal Assistance 1=Total Assistance 5=Supervision or Setup 2=Maximal Assistance 6=Modified [place] 3=Moderate Assistance 7=Complete IndependenceIRFPAI Quality Coding Scale 6 Independent with activity with or without an assistive device 5 Patient requires set up or clean up by helper. Patient completes activity by themselves 4 Supervision or touching assist (CGA). Idamay provide cues , steadying assist 3 The helper provides less than half the effort to complete the activity 2 The helper provides more than half the effort to complete the activity 1 Dependent. The helper does all the effort to complete an activity 7 Patient refused to complete or attempt activity 9 The patient did not perform the activity before the current illness or injury 88 Not attempted due to Medical conditions or safety concerns Lower Body Dressing (FIM): 2 (OT puts pt's slip on slippers on floor in front of pt. Pt. is unable to slip his feet into them.) Transfers (B, C, W/C) (FIM): 3 (Pt. requires mod assist for supine-sit, and min assist for sit-stand and to take several steps to HOB. Min assist for sit- supine.) Education OT Patient Education: Correct positioning, Modified ADL techniques, Progress toward Goal/Update tx plan, Purpose of tx/functional activities, Reviewed precautions, Rehab process, Transfer techniques Teaching Recipient: Patient Teaching Methods: Demonstration, Discussion Response to Teaching: Verbalize Understanding, Return Demonstration OT Short Term Goals Short Term Goals Time Frame: Dec 29, 2016 Eating(FIM): 5 Grooming(FIM): 4 Upper Body Dressing(FIM): 4 Lower Body Dressing(FIM): 4 Toileting(FIM): 4 Transfers (B,C,W/C) (FIM): 4 Toilet/Commode Transfer(FIM): 4 Additional Short Term Goals: 1-Demonstrate ADL Tasks, 2-Verbalize Understanding , 3-ImproveStrength/[place] 1=Demonstrate adherence to instructed precautions during ADL tasks. 2=Patient will verbalize/demonstrate understanding of assistive devices/ modifications for ADL. 3=Patient will improve strength/tolerance for activity to enable patient to perform ADL's. OT Group Home Goals General Dentist/Owner Goals Time Frame: Jan 05, 2017 Eating (FIM): 6 Grooming(FIM): 5 Upper Body Dressing(FIM): 5 Lower Body Dressing(FIM): 5 Toileting(FIM): 5 Transfers (B,C,W/C) (FIM): 5 Toilet/Commode Transfer(FIM): 5 Additional Goals: 1-Demonstrate ADL Tasks, 2-Verbalize Understanding, 3- ImproveStrength/[place] 1=Demonstrate adherence to instructed precautions during ADL tasks. 2=Patient will verbalize/demonstrate understanding of assistive devices/ modifications for ADL. 3=Patient will improve strength/tolerance for activity to enable patient to perform ADL's. OT Education/Plan Problem List/Assessment Assessment: Decreased Activ Tolerance, Decreased UE Strength, Dependent Transfers, Impaired Bed Mobility, Impaired Cognition, Impaired Funct Balance, Impaired I ADL's, Impaired Self-Care Skills, Restricted Funct UE ROM Discharge Recommendations Plan/Recommendations: Continue POC Therapy D/C Recommendations: 24 hr Supervision Treatment Plan/Plan of Care Treatment,Training & Education: Yes Patient would benefit from OT for education, treatment and training to promote independence in ADL's, mobility, safety and/or upper extremity function for ADL' s. Plan of Care: ADL Retraining, Functional Mobility, UE Funct Exercise/Act Treatment Duration: Jan 05, 2017 Agreement: Yes Rehab Potential: Fair Time/GCodes Start Time: 14:28 Stop Time: 14:40 Total Time Billed (hr/min): 12 Billed Treatment Time 1, Roderick com CRUZ SHAFER OT Dec 22, 2016 15:56
[2016-12-22] MEDS: ATORVASTATIN 20 MG (LIPITOR) TABLET PO SCH (20:00)
[2016-12-23] MEDS: NS IV 1000 ML 1,000 ML IV SCH (01:41)
[2016-12-23 04:00] VITALS: BP 161/74
[2016-12-23] MEDS: ACETAMINOPHEN 500 MG TAB (TYLENOL) PO PRN (04:00)
[2016-12-23 05:07] VITALS: BP 147/70
[2016-12-23 05:59] LABS: ANION GAP 10 MMOL/L (5-14); BLOOD UREA NITROGEN 15 MG/DL (7-18); BUN/CREATININE RATIO 21; CALCIUM 8.3 MG/DL (8.5-10.1); CARBON DIOXIDE 19 MMOL/L (21-32); CHLORIDE 111 MMOL/L (98-107); CREATININE SERUM 0.73 MG/DL (0.60-1.30); GFR ESTIMATED > 60; GLUCOSE 90 MG/DL (70-105); POTASSIUM 3.4 MMOL/L (3.6-5.0); SODIUM 140 MMOL/L (135-145)
--- NOTE | 2016-12-23 07:39 | ECHOCARDIOGRAPHY REPORT ---
PROCEDURE PHYSICIAN: GEOVANNI PAZ DATE OF PROCEDURE: 12/21/2016 TWO DIMENSIONAL ECHOCARDIOGRAM REPORT PRIMARY PHYSICIAN: Dr. Christianson OTHER PHYSICIAN: Dr. Paz REFERRING PHYSICIAN: ORDERING PHYSICIAN: Danna Mas APRN INDICATION FOR THE PROCEDURE: Recent myocardial infarction, coronary artery disease. MEASUREMENTS DERIVED VALUES LV DIAMETER (LAX) NORMALS NORMALS Diastolic 5.1 (3.6-5.2) Eject. Fract. (60%+/-6%) Systolic (2.3-3.9) Diastolic Vol. % Shortening (0.22-0.42) Systolic Vol. Aortic Root 4.1 IVS THICKNESS Diastolic 1.5 (0.6-1.1) LVPW THICKNESS Diastolic 1.5 (0.6-1.1) LA DIAMETER Systolic 4.5 (2.1-3.7) DESCRIPTION: This is a technically difficult study. The wall motion is difficult to analyze. There does appear to be distal septal and anteroapical hypokinesis to akinesis. Aortic, mitral and tricuspid valve leaflets do seem to have good leaflet excursion. Doppler imaging shows trivial aortic, mitral and tricuspid regurgitation. There is no Doppler evidence of significant valvular stenosis. Mitral inflow is consistent with grade 1 diastolic dysfunction of the left ventricle. There is no evidence of any significant intracardiac shunt on this transthoracic echocardiographic study. Inferior vena cava appears mildly dilated but does seem to have inspiratory collapse. Pulmonary artery systolic pressure is estimated to be approximately 30 mmHg. CONCLUSION: 1. Technically difficult study. 2. Impairment of global left ventricular systolic function with ejection fraction of approximately 40%. 3. Distal septal and anteroapical hypokinesis to akinesis. 4. Mild diastolic dysfunction of the left ventricle. 5. Trivial, mitral, tricuspid and aortic regurgitation. 6. Pulmonary artery systolic pressure is estimated to be approximately 30 mmHg, Job ID: [id number] Dictated Date: 12/22/2016 11:33:41 Purchasing Specialist Date: 12/23/2016 07:32:02 / sherly
--- NOTE | 2016-12-23 08:40 | Progress Note (SOAP) ---
Subjective Subjective/Events-last exam PT REPORTS THAT HE IS FEELING BETTER TODAY - HE DENIES CHEST PAIN, SHORTNESS OF BREATH, DENIES ABDOMINAL PAIN. Review of Systems General: No Chills, No Fatigue HEENT: No Head Aches Pulmonary: No Dyspnea, No Cough Cardiovascular: No: Chest Pain Gastrointestinal: No: Abdominal Pain, Nausea Genitourinary: No Dysuria Neurological: : Confusion: Weakness Objective Exam Vital Signs Date Time Temp Pulse Resp B/P Pulse Ox O2 Delivery O2 Flow Rate FiO2 12/23/16 07:59 84 12/23/16 05:07 98.4 67 147/70 Room Air 12/23/16 05:07 98.4 12/23/16 04:00 99.5 12/23/16 04:00 99.5 76 20 161/74 94 Room Air 12/23/16 01:00 65 12/22/16 23:55 97.8 62 14 131/61 96 Room Air 12/22/16 20:00 93 12/22/16 20:00 100.0 83 20 156/78 94 Room Air 12/22/16 20:00 100.0 12/22/16 19:00 74 12/22/16 18:00 99.7 88 20 146/70 94 Room Air 12/22/16 16:00 99.4 91 22 160/94 94 Room Air 12/22/16 13:00 63 12/22/16 12:00 98.7 64 20 121/71 93 Room Air I & O 12/23/16 07:00 Intake Total 2870 ml Output Total 905 ml Balance 1965 ml Capillary Refill : Less Than 3 Seconds General Appearance: No Apparent Distress WD/WN HEENT: PERRL/EOMI Neck: Full Range of Motion Supple Respiratory: Chest Non Tender Lungs Clear Normal Breath Sounds Cardiovascular: Regular Rate, Rhythm Gastrointestinal: normal bowel sounds non tender soft Neurologic/Psychiatric: Alert Disoriented x3 Skin: Warm/Dry Results Lab Laboratory Tests 12/23/16 05:25: Anion Gap 10, BUN/Creatinine Ratio 21, Blood Urea Nitrogen 15, Calcium Level 8.3L, Carbon Dioxide Level 19L, Chloride Level 111H, Creatinine 0.73, Estimat Glomerular Filtration Rate > 60, Glucose Level 90, Potassium Level 3.4L, Sodium Level 140 Microbiology 12/21/16 Urine Culture - Preliminary, Resulted NO GROWTH Assessment/Plan Assessment/Plan Assess & Plan/Chief Complaint STEMI HYPERTENSION URINARY TRACT INFECTION FEVER DEMENTIA WEAKNESS STEMI AND HTN - DEFER TREATMENT TO DR. MORALES - CONTINUE MEDICAL MANAGEMENT INSTEAD OF INTERVENTIONAL TREATMENT. UTI - PT TO CONTINUE WITH LEVAQUIN ORALLY - FEVER - MONITOR PT HAS TREATMENT OF UTI DEMENTIA AND WEAKNESS - CONTINUE WITH PLANS FOR JAIL PLACEMENT FOR STRENGTHENING/THERAPIES. JAIL PLACEMENT TODAY Diagnosis/Problems: Clinical Quality Measures DVT/VTE Risk/Contraindication: Risk Factor Score Per Nursin RFS Level Per Nursing on Admit: 4+=Very High JOHN GERMAN MD Dec 23, 2016 08:40
[2016-12-23] MEDS ORDERED: LEVO500T80 PO (08:47)
[2016-12-23] MEDS ORDERED: ATOR20TA66 PO (08:47)
[2016-12-23] MEDS ORDERED: ACET-77 PO (08:47)
[2016-12-23] MEDS ORDERED: LACT1CAP53 PO (08:47)
[2016-12-23] MEDS ORDERED: CLOP75TA28 PO (08:47)
[2016-12-23] MEDS ORDERED: METO-333 PO (08:47)
[2016-12-23] MEDS ORDERED: ENAL10TA PO (08:47)
--- NOTE | 2016-12-23 08:50 | Discharge Inst-Complex ---
PDI Med Rec & Follow Up Appt. New Medications: Lactobacillus Acidophilus (Acidophilus Probiotic) 1 Mg Tablet 1 MG PO AC #90 TAB Acetaminophen (Acetaminophen) 500 Mg Tablet 500 MG PO Q6HR PRN MILD PAIN #60 Ref 6 TAB Atorvastatin Calcium (Atorvastatin Calcium) 20 Mg Tablet 20 MG PO HS #30 Ref 3 TAB Clopidogrel Bisulfate (Clopidogrel) 75 Mg Tablet 75 MG PO DAILY #30 TAB Enalapril Maleate (Enalapril Maleate) 10 Mg Tablet 10 MG PO BID #60 Ref 3 TAB Levofloxacin (Levofloxacin) 500 Mg Tablet 500 MG PO DAILY@11 #5 TAB Metoprolol Tartrate (Metoprolol Tartrate) 25 Mg Tablet 12.5 MG PO BID #30 Ref 3 TAB Continued Medications: Cetirizine HCl (Cetirizine HCl) 10 Mg Tablet 10 MG PO DAILY TAB Discontinued Medications: Amlodipine Besylate (Amlodipine Besylate) 5 Mg Tablet 5 MG PO DAILY TAB Lisinopril (Lisinopril) 20 Mg Tablet 20 MG PO DAILY TAB Metoprolol Succinate (Metoprolol Succinate) 25 Mg Tab.er.24h 25 MG PO DAILY TAB Prescription: Transmitted to Pharmacy Activity, Diet and PDI Resume Normal Activity: Yes Discharge Diet: Regular Diet Drink 6-8 Glasses of Fluid/Day: Yes Return to The Hospital For: ANY ACUTE CONCERNS OR LIFETHREATENING ILLNESS Symptoms to Reoprt to : Appetite Changes, Fever Over 101 Degrees F, Pain/ Pressure in Chest, Diarrhea(Persistant), Shortness of Breath For Problems or Questions: Contact Your Physician, Go to Emergency Room Infection Signs and Symptoms: Temperature Above 101 F JOHN GERMAN MD Dec 23, 2016 08:49
[2016-12-23 08:59] VITALS: BP 141/64
[2016-12-23] MEDS ORDERED: ENOXAPARIN 40 MG/0.4 ML (LOVENOX) SYR SC SCH (09:00)
[2016-12-23] MEDS: CLOPIDOGREL 75 MG (PLAVIX) TABLET PO SCH (09:18)
[2016-12-23] MEDS: ASPIRIN 81 MG CHEW (CHILDREN'S ASA) PO SCH (09:19)
[2016-12-23] MEDS: ENALAPRIL 10 MG (VASOTEC) TAB PO SCH (09:19)
[2016-12-23] MEDS: meTOprolol TARTRATE 25 MG (LOPRESSOR) TABLET PO SCH (09:19)
--- NOTE | 2016-12-23 09:25 | Progress Note-Cardiology ---
Cardiology SOAP Progress Note Subjective: In bed eating morning meal. No c/o CP, dyspnea, palpitations, syncope or near syncope. Objective: I&O/Vital Signs Vital Sign - Last 12Hours 12/23/16 12/23/16 12/23/16 12/23/16 04:00 04:00 05:07 05:07 Temp 99.5 99.5 98.4 98.4 Pulse 76 67 Resp 20 B/P 161/74 147/70 Pulse Ox 94 O2 Delivery Room Air Room Air 12/23/16 12/23/16 12/23/16 07:59 08:59 11:11 Temp 98.6 Pulse 84 77 77 Resp 17 B/P 141/64 141/64 Pulse Ox 93 93 O2 Delivery Room Air O2 Flow Rate 2.00 Intake and Output 12/23/16 00:00 Intake Total 1670 ml Output Total 555 ml Balance 1115 ml Weight (Pounds): 188 Weight (Ounces): 9.0 Weight (Calculated Kilograms): 85.496191 Constitutional: appears stated ageNo apparent distress, well-developed well- nourished Respiratory: No accessory muscle use, No respiratory distress, chest expansion is symmetric chest is bilaterally symmetric lungs clear to percussion lungs clear to auscultation Cardiovascular: regular rate-rhythm S1 and S2 Gastrointestional: No tender, soft roundNo spleenomegaly Genital/Rectal: other (dysuria) Extremities: No clubbing, No cyanosis, No significant edema Neurologic/Psychiatric: alert oriented x 3 power is 5/5 both on sides Skin: No rash, No ulcerations Results/Procedures: Labs Laboratory Tests 12/23/16 05:25: Anion Gap 10, BUN/Creatinine Ratio 21, Blood Urea Nitrogen 15, Calcium Level 8.3L, Carbon Dioxide Level 19L, Chloride Level 111H, Creatinine 0.73, Estimat Glomerular Filtration Rate > 60, Glucose Level 90, Potassium Level 3.4L, Sodium Level 140 Microbiology 12/21/16 Urine Culture - Final, Complete NO GROWTH A/P: Assessment: STEMI, subacute, index event more than 48 hours prior to admission - family/pt desires conservative and empiric therapy UTI - medical services for management H/O HTN H/O BPH - follows with Dr. Hermosillo Dysuria Renal insufficiency, probably acute due to prerenal azotemia due to poor oral intake in the recent past Legal blindness Chronic hardness of hearing Echocardiogram of 2-8-17. Technically difficult study. Impairment of global left ventricular systolic function with ejection fraction of approximately 40%. Distal septal and anteroapical hypokinesis to akinesis. Mild diastolic dysfunction of the left ventricle. Trivial, mitral, tricuspid and aortic regurgitation. Pulmonary artery systolic pressure is estimated to be approximately 30 mmHg, Plan: STEMI for which pt and family desire empiric and conservative tx. We will continue BB, ASA, Plavix, statin and DARION (-) Dysuria with urinary retention and h/o BPH and UTI - medical services managing He is to discharge to [facility] today We will see him as an outpat in 2 weeks Physician Assessment Physician Assessment Lungs: clear Cor: reg A&R * As documented in our note above * I spoke with him and answered questions * I also spoke with Dr Christianson today Time spent by us in evaluating patient, answering questions, speaking with pcp, preparing discharge: 33 min (8:55 - 9:00 and 9:10 - 9:38 am) CHELITA WAGNER Dec 23, 2016 09:25 GEOVANNI MORALES MD FACP FAC CCDS Dec 23, 2016 14:50
[2016-12-23] MEDS ORDERED: ASPI-999 PO (09:26)
--- NOTE | 2016-12-23 09:33 | Cardiology Discharge Summary ---
Diagnosis/Chief Complaint Date of Admission Dec 20, 2016 at 15:30 Date of Discharge 12-23-16 Admission Diagnosis STEMI, subacute, index event more than 48 hours ago - family/pt desires conservative and empiric therapy H/O HTN H/O BPH - follows with Dr. Hermosillo Renal insufficiency, probably acute due to prerenal azotemia due to poor oral intake in the recent past Legal blindness Chronic hardness of hearing Final/Discharge Diagnosis STEMI, subacute, index event more than 48 hours prior to admission - family/pt desires conservative and empiric therapy UTI - medical services for management H/O HTN H/O BPH - follows with Dr. Hermosillo Dysuria Renal insufficiency, probably acute due to prerenal azotemia due to poor oral intake in the recent past Legal blindness Chronic hardness of hearing Echocardiogram of 12-21-16. Technically difficult study. Impairment of global left ventricular systolic function with ejection fraction of approximately 40%. Distal septal and anteroapical hypokinesis to akinesis. Mild diastolic dysfunction of the left ventricle. Trivial, mitral, tricuspid and aortic regurgitation. Pulmonary artery systolic pressure is estimated to be approximately 30 mmHg, Chief Complaint/HPI Chief Complaint/HPI Mr. Valdes is an 89 year old male who presented to the ED at [facility] d/t increasing weakness and poor oral intake for several days. Does recall some chest discomfort more than 48 hours ago. None since. Lab at [facility] showed an elevated troponin and EKG showed STEMI. He has been transferred to ICU 10. He denies any c/o CP, dyspnea, syncope, near syncope or LE edema. He states other than increasing generalized weakness he has been feeling fine. Discharge Summary Procedures None. Discharge Physical Examination Per progress note of 12-23-16 Hospital Course Mr. Valdes was admitted from [facility] with an STEMI. Patient and family desire conservative and empiric therapy only. We have started BB, statin, ASA, Plavix and DARION (-). He was having urinary retention. Urinary catheter was placed and UA showed UTI. Medical services was consulted for treatment. Overall he is feeling well. He is to transfer to [facility] today. We will see him as an outpatient in f/u. Labs Laboratory Tests 12/22/16 07:45 12/23/16 05:25 Pending Labs Radiology Reviewed CXR from 12-20-16 at [facility] reviewed which showed normal PA and lateral chest x-ray Discussion & Recommendations Discussion STEMI for which pt and family desire empiric and conservative tx. We will continue BB, ASA, Plavix, statin and DARION (-) Dysuria with urinary retention and h/o BPH and UTI - medical services managing He is to discharge to [facility] today We will see him as an outpat in 2 weeks Time spent by us in evaluating patient, answering questions, speaking with pcp, preparing discharge: 33 min (8:55 - 9:00 and 9:10 - 9:38 am) Activity as Tolerated: Yes Home Medications Reviewed patient Home Medication Reconciliation Form Discharge Home Medications: New Medications: Lactobacillus Acidophilus (Acidophilus Probiotic) 1 Mg Tablet 1 MG PO AC #90 TAB Acetaminophen (Acetaminophen) 500 Mg Tablet 500 MG PO Q6HR PRN MILD PAIN #60 Ref 6 TAB Aspirin (Aspirin) 81 Mg Tab.chew 81 MG PO DAILY #90 Ref 3 TAB Atorvastatin Calcium (Atorvastatin Calcium) 20 Mg Tablet 20 MG PO HS #30 Ref 3 TAB Clopidogrel Bisulfate (Clopidogrel) 75 Mg Tablet 75 MG PO DAILY #30 TAB Enalapril Maleate (Enalapril Maleate) 10 Mg Tablet 10 MG PO BID #60 Ref 3 TAB Levofloxacin (Levofloxacin) 500 Mg Tablet 500 MG PO DAILY@11 #5 TAB Metoprolol Tartrate (Metoprolol Tartrate) 25 Mg Tablet 12.5 MG PO BID #30 Ref 3 TAB Continued Medications: Cetirizine HCl (Cetirizine HCl) 10 Mg Tablet 10 MG PO DAILY TAB Discontinued Medications: Amlodipine Besylate (Amlodipine Besylate) 5 Mg Tablet 5 MG PO DAILY TAB Lisinopril (Lisinopril) 20 Mg Tablet 20 MG PO DAILY TAB Metoprolol Succinate (Metoprolol Succinate) 25 Mg Tab.er.24h 25 MG PO DAILY TAB Clinical Quality Measures DVT/VTE Risk/Contraindication: Risk Factor Score Per Nursin RFS Level Per Nursing on Admit: 4+=Very High CHELITA WAGNER Dec 23, 2016 09:33 GEOVANNI MORALES MD FACP [facility] Dec 23, 2016 14:56 Risk Factor Score Per Nursin RFS Level Per Nursing on Admit: 4+=Very High CHELITA WAGNER Dec 23, 2016 09:33
--- NOTE | 2016-12-23 10:18 | Discharge Inst-Skilled Nursing ---
Discharge Inst-Skilled NF Consult/Follow Up/Orders Skilled NF Admit to: [facility] Certification (SNF) I certify that SNF services are required to be given on an inpatient basis because of the above named patient's need for assisted care on a continuing basis for the conditions(s) for which he/she was receiving inpatient hospital services prior to his/her transfer to the SNF. [facility] Facility Order: Nursing Services, Jig Worker-Evaluate & Treat, Physical Therapy-Evaluate & Treat, Speech Language-Evaluate & Treat Discharge Diet: Regular Diet Daily Activity as Tolerated: Yes New & Resume Previous Orders John Christianson Dec 23, 2016 10:18 JOHN CHRISTIANSON MD Dec 23, 2016 10:18
[2016-12-23] MEDS: LEVOFLOXACIN 500 MG TAB (LEVAQUIN) PO SCH (10:30)
[2016-12-23 11:11] VITALS: BP 141/64
[2017-02-26] MEDS ORDERED: POTA10TA10 PO (14:27)
[2017-02-26] MEDS ORDERED: FURO20TA4 PO (14:27)
[2017-02-27] MEDS ORDERED: ASPI-999 PO (10:37)
[2017-02-27] MEDS ORDERED: ACET-93 PO (10:37)
[2017-02-27] MEDS ORDERED: ACID1TAB5 PO (10:37)
[2017-02-27] MEDS ORDERED: METO-333 PO (10:37)
[2017-02-27] MEDS ORDERED: CLOP75TA28 PO (10:37)
[2017-02-27] MEDS ORDERED: ATOR20TA66 PO (10:37)
[2017-02-27] MEDS ORDERED: NYST15CR TP (10:37)
[2017-02-27] MEDS ORDERED: ENAL10TA PO (10:37)
[2017-03-01] MEDS ORDERED: LORA2ORA PO (08:54)
[2017-03-01] MEDS ORDERED: MORP100S3 PO (08:54)
== END 2016-12-23 11:11 | DRG 281 ==
LOC: ICU 15:30 → 4TH 12-22 18:23
PROVIDERS: ADMIT Internal Medicine Cardiovascular Disease; ATTEND Internal Medicine Cardiovascular Disease
DX: I21.3 ST elevation (STEMI) myocardial infarction of unspecified site (principal); N39.0 Urinary tract infection, site not specified; I10 Essential (primary) hypertension; N40.0 Benign prostatic hyperplasia without lower urinary tract symptoms; N28.9 Disorder of kidney and ureter, unspecified; Z66 Do not resuscitate; H54.8 Legal blindness, as defined in USA; H91.90 Unspecified hearing loss, unspecified ear; K21.9 Gastro-esophageal reflux disease without esophagitis; M19.90 Unspecified osteoarthritis, unspecified site; F03.90 Unspecified dementia, unspecified severity, without behavioral disturbance, psychotic disturbance, mood disturbance, and anxiety; R53.1 Weakness
CPT/HCPCS: 36415; 80048; 80053; 80061; 81000; 83735; 85027; 87088; 93005; 93306

== ENCOUNTER → 2017-01-27 | Outpatient (CLI) | payer MEDICARE ==
[~2017-01-27] MED LIST changes: +ACET-93 PO; +ACID1TAB5 PO; +AMOX875T2 PO; +ASPI-999 PO; +ATOR20TA66 PO; +CETI10TA17 PO; +CLOP75TA28 PO; +ENAL10TA PO; +FURO20TA4 PO; +LACT1CAP53 PO; +LEVO500T80 PO; +LORA2ORA PO; +METO-333 PO; +MORP100S3 PO; +NYST15CR TP; +POTA10TA10 PO
--- OUTSIDE RECORDS SUMMARY | 2017-01-27 17:53 | XMS REPORT | Continuity of Care Document ---
Author Author [facility] Organization [facility] Address Unknown Phone Unavailable Care Team Providers Care Dispatch Specialist Name Role Phone TIMMY RUTLEDGE MD PCP Insurance Providers Payer Name Policy Number Subscriber Name Relationship Self Pay Advance Directives Directive Response Recorded Date/Time Advance Directives Yes 11/07/14 3:40pm Health Care Power of Manager Property Yes 11/07/14 3:40pm Organ Donor No 11/07/14 [...] Height (Inches) 7 inches Height (Calculated Centimeters) 170.814881 cm Weight (Pounds) 190 pounds Weight (Calculated Kilograms) 86.848550 kilograms Calculated BMI 29.75 Results Laboratory Results [...] 5-9 11/07/2014 5:25pm 11/07/2014 5:38pm Urine Specific [place] 1.010 * 1.016-1.022 11/07/2014 5:25pm 2013 5:38pm [...] Encounter Location Date/Time Departed Emergency Room [facility] 11/07/14 2:39pm Recent Diagnosis
[2017-01-27 17:54] LABS: KETONES,URINE NEGATIVE (NEGATIVE); LEUKOCYTE ESTERASE ,URINE 1+ (NEGATIVE); NITRITE,URINE NEGATIVE (NEGATIVE); PH,URINE 5 (5-9); PROTEIN,URINE 2+ (NEGATIVE); UROBILINOGEN,URINE 1 MG/DL (NORMAL)
[2017-01-27 18:08] LABS: WBC,URINE 0-2 /HPF
[2017-01-27 18:09] LABS: BILIRUBIN,URINE 1+ (NEGATIVE)
== END ==
LOC: HH 17:49
PROVIDERS: ATTEND Family Medicine
DX: N39.0 Urinary tract infection, site not specified (principal)
CPT/HCPCS: 81000

== ENCOUNTER → 2017-02-02 | Outpatient (CLI) | payer MEDICARE ==
--- NOTE | 2017-02-02 12:07 | Diagnostic Imaging Report ---
INDICATION: Congestive heart failure and abnormal physical examination of the chest. PA and lateral views of the chest are obtained. Comparison is made to the study of 02/24/2016. FINDINGS: There is generalized cardiomegaly. Pulmonary vascularity is also prominent. There is basilar atelectasis and/or pneumonitis with blunting of left costophrenic sulcus. IMPRESSION: There is cardiomegaly with pulmonary vascularity at the upper limits of normal. No overt edema is identified, however, there is basilar atelectasis and probable mild pleural fluid or thickening, bilaterally. Dictated by: Dictated on workstation # [id number]
== END ==
LOC: RAD 11:24
PROVIDERS: ATTEND Nurse Practitioner Family
DX: I50.9 Heart failure, unspecified (principal)
CPT/HCPCS: 71020

== ENCOUNTER 2017-02-06 03:34 | Emergency (ER) | payer MEDICARE ==
[~2017-02-06] VITALS: Ht 170.2 cm; Wt 77.1 kg
[~2017-02-06 03:34] MED LIST changes: -ACET-93 PO; -ACID1TAB5 PO; -AMOX875T2 PO; -FURO20TA4 PO; -LORA2ORA PO; -MORP100S3 PO; -NYST15CR TP; -POTA10TA10 PO
--- NOTE | 2017-02-06 03:52 | ED Fall/Injury ---
General Chief Complaint: Trauma-Non Activation Stated Complaint: FALL LAC Nursing Triage Note: patient reports rolling out of bed and landing on face. laceration to face noted. patient c/o L knee swelling, bruising noted to L knee and L hand Source: patient, EMS, RN notes reviewed, [place] records Exam Limitations: no limitations History of Present Illness Time seen by provider: 03:40 Occurred: just prior to arrival Severity: moderate Injuries/Pain Location: face (upper lip), upper extremity (left hand), lower extremity (left knee) Context: other (accidentally rolled out of his bed) Loss of Consciousness: no loss of consciousness Modifying Factors: Worse With Movement (increases knee and hand pain) Associated Symptoms (Fall): Headache, No Neck Pain Allergies and Home Medications Allergies Coded Allergies: No Known Drug Allergies (Verified , 01/19/09) Home Medications Acetaminophen 500 Mg Tablet, 500 MG PO Q6HR PRN for MILD PAIN, #60 Ref 6 Prescribed by: JOHN GERMAN on 12/23/16 0847 Amoxicillin 875 Mg Tablet, 875 MG PO BID, #14 Ref 0 Prescribed by: DOROTA MUÑOZ on 02/06/17 0555 Aspirin 81 Mg Tab.chew, 81 MG PO DAILY, #90 Ref 3 Prescribed by: CHELITA WAGNER on 12/23/16 0926 Atorvastatin Calcium 20 Mg Tablet, 20 MG PO HS, #30 Ref 3 Prescribed by: JOHN GERMAN on 12/23/16 0847 Cetirizine HCl 10 Mg Tablet, 10 MG PO DAILY, (Reported) Clopidogrel Bisulfate 75 Mg Tablet, 75 MG PO DAILY, #30 Prescribed by: JOHN GERMAN on 12/23/16 0847 Enalapril Maleate 10 Mg Tablet, 10 MG PO BID, #60 Ref 3 Prescribed by: JOHN GERMAN on 12/23/16 0847 Lactobacillus Acidophilus 1 Mg Tablet, 1 MG PO AC, #90 Prescribed by: JOHN GERMAN on 12/23/16 0847 Metoprolol Tartrate 25 Mg Tablet, 12.5 MG PO BID, #30 Ref 3 Prescribed by: JOHN GERMAN on 12/23/16 0847 Constitutional: see HPI Musculoskeletal: see HPI, other (left knee swelling, pain, and bruising. Left hand pain.) Skin: see HPI, other (Laceration upper lip) All Other Systems Reviewed Negative Unless Noted: Yes (Negative excepted noted.) Past Cxzkntr-Jconch-Bhmkvj Hx Patient Social History Alcohol Use: Denies Use Recreational Drug Use: No Smoking Status: Never a Smoker Recent Foreign Travel: No Contact w/Someone Who Travel: No Recent Infectious Disease Expo: No Recent Hopitalizations: Yes Immunizations Up To Date Tetanus Booster (TDap): Unknown PED Vaccines UTD: No Date of Pneumonia Vaccine: Dec 21, 2015 Date of Influenza Vaccine: Dec 12, 2014 Seasonal Allergies Seasonal Allergies: No Surgeries HX Surgeries: Yes (CYTOSCOPY WITH STRETCHING 12/01/2014) Surgeries: Bladder Surgery, Prostatectomy Respiratory Hx Respiratory Disorders: No Cardiovascular Hx Cardiac Disorders: Yes Cardiac Disorders: Hypertension Neurological Hx Neurological Disorders: No Reproductive System Hx Reproductive Disorders: No Sexually Transmitted Disease: No HIV/AIDS: No Genitourinary Hx Genitourinary Disorders: Yes Genitourinary Disorders: Prostate Problems Gastrointestinal Hx Gastrointestinal Disorders: No Gastrointestinal Disorders: Gastroesophageal Reflux Musculoskeletal Hx Musculoskeletal Disorders: Yes Musculoskeletal Disorders: Arthritis Endocrine Hx Endocrine Disorders: No HEENT HX ENT Disorders: Yes Loss of Vision: Right Hearing Impairment: Hard of Hearing Cancer Hx Cancer: No Psychosocial Hx Psychiatric Problems: No Integumentary HX Skin/Integumentary Disorder: No Blood Transfusions Hx Blood Disorders: No Adverse Reaction to a Blood Tr: No Family Medical History Significant Family History: No Pertinent Family Hx Family Medial History: Patient reports no known family medical history. Physical Exam Vital Signs Capillary Refill : Less Than 3 Seconds General Appearance: WD/WN, no apparent distress HEENT: PERRL/EOMI Neck: supple Cardiovascular: regular rate, rhythm Respiratory: no respiratory distress Rectal: deferred Extremities: swelling (left knee as well as pain, tenderness, and bruising.), other (left hand is tender and painful.) Neurologic/Psychiatric: no motor/sensory deficits, alert, depressed affect Skin: warm/dry, ecchymosis (left knee), other (thru and thru laceration upper lip; bleeding controlled; swollen and tender) [place] Coma Score Best Eye Response: (4) Open Spontaneously Best Verbal Response: (5) Oriented Best Motor Response: (6) Obeys Commands Aretha Total: 15 Laceration Repair : Wound Location: Face (upper lip) Wound Length (cm): 1.5 Wound's Depth, Shape: irregular, sub Q (thru and thru) Wound Explored: clean Other Closure Supply: Wound Adhesive Progress/Results/Core Measures Results/Orders My Orders Orders - DOROTA MUÑOZ DO Ct Head/Face/Cervical Wo (02/06/17 03:49) Hand, Left, 3 Views (02/06/17 03:50) Knee, Left, 3 Views (02/06/17 03:50) Vital Signs/I&O Blood Pressure Mean: 115 Diagnostic Imaging Diagonstic Imaging: Xray, CT Reviewed: Reviewed [place] Study, Reviewed by Me (nothing acute) Departure Impression Impression: Primary Impression: Fall Additional Impressions: Contusion of face Thru and thru upper lip laceration Contusion hand and knee Disposition: (long-term) Condition: Improved Departure-Patient Inst. Decision time for Depature: 05:52 Referrals: JOHN GERMAN MD (PCP/Family) Primary Care Physician Patient Instructions: Contusion (DC), Laceration Repair With Glue (DC) Scripts Amoxicillin (Amoxicillin) 875 Mg Tablet 875 MG PO BID, #14 TAB 0 Refills Prov: DOROTA MUÑOZ DO 02/06/17 DOROTA MUÑOZ DO Feb 06, 2017 03:51
[2017-02-06 05:12] VITALS: BP 126/85
[2017-02-06] MEDS ORDERED: AMOX875T2 PO (05:55)
[2017-02-06 06:55] VITALS: BP 138/75
--- NOTE | 2017-02-06 08:06 | Diagnostic Imaging Report ---
EXAMINATION: 3 views of the left knee. INDICATION: Swelling and bruising after injury. FINDINGS: There is no fracture, dislocation or radiopaque foreign body. No suprapatellar effusion seen. There is circumferential soft tissue swelling around the knee. Minimal marginal osteophytes are noted. The joint space is preserved. IMPRESSION: No acute process. Dictated by: Dictated on workstation # [id number]
--- NOTE | 2017-02-06 08:13 | Diagnostic Imaging Report ---
INDICATION: Left hand pain post fall AP, oblique, and lateral views of the left hand are obtained. There is osteopenia. There is marked degenerative change of first carpal metacarpal joint. There is diffuse degenerative change of the interphalangeal joints. There is no acute fracture. IMPRESSION: Osteopenia and diffuse degenerative change. No acute bony abnormality. Dictated by: Dictated on workstation # [id number]
--- NOTE | 2017-02-06 08:26 | Diagnostic Imaging Report ---
PROCEDURE: CT head, face, and cervical spine without contrast. TECHNIQUE: Multiple contiguous axial images were obtained through the head, neck, and facial bones without the use of intravenous contrast. Sagittal and coronal reformations through the cervical spine and facial bones were also performed. INDICATION: Trauma, status post fall. Laceration to face. CORRELATION STUDY: CT head 02/24/2016 FINDINGS: CT HEAD: There is generalized age-appropriate atrophic changes with prominence of the ventricles and sulci. Scattered areas of decreased attenuation likely owing to chronic small vessel ischemic disease. There's been development of encephalomalacia in the right cerebellum to a lesser degree left occipital lobe compatible with prior areas of infarct, changed from prior study. Bilateral basal ganglia lacunar type infarcts present. No intracranial hemorrhage or abnormal extra axial fluid collection. Left frontal scalp swelling is noted. Bony calvarium mildly intact. There is continued chronic complete opacification of the right mastoid air cells. CT maxillofacial: There is no acute displaced maximum facial fracture deformity. Globes and retro-orbital structures appearing symmetric and unremarkable. There is trace paranasal sinus mucosal thickening. Scattered areas of mild periapical lucency are noted. There is noted asymmetric medialization of the right vocal cord. Degenerative changes of bilateral temporal mandibular joints. CT CERVICAL SPINE: There is rather significant patient motion artifact limiting assessment. The alignment appearing to be relatively anatomic as visualized on reformatted images. Multilevel cervical spondylosis and marked disc space narrowing at essentially all levels of cervical spine. Asymmetric areas of hypertrophic facet arthropathy. Odontoid intact. Lateral masses C1 and C2 aligned. There is endplate osteophyte encroachment particularly at the C3-C4 level resulting in osseous narrowing of the neuroforamina and spinal canal. Diffuse bony demineralization. There is a note made of a presence of bilateral pleural effusion at the lung apices right greater than left. IMPRESSION: CT HEAD: 1. Negative for acute traumatic intracranial abnormality. Frontal scalp hematoma. 2. Generalized age-related atrophic change with change of small vessel ischemic disease. Prior areas of infarct involving the right cerebellum, left occipital lobe, bilateral lacunar infarcts with the basal ganglia appearing changed from prior study. CT maxillofacial: 1. Negative for acute displaced maxillofacial fracture deformity. CT CERVICAL SPINE: 1. Fairly significant compromise because of patient motion artifact. No definitive evidence for traumatic subluxation or acute fracture. 2. Incidental note made of a bilateral pleural effusions right greater than left. Dictated by: Dictated on workstation # [id number]
--- OUTSIDE RECORDS SUMMARY | 2017-02-21 15:35 | XMS REPORT | Continuity of Care Document ---
Author Author [facility] Organization [facility] Address Unknown Phone Unavailable Allergies Active Description Code Type Severity Reaction Onset Reported/Identified Relationship to Patient Clinical Status Yes No Known Drug Allergies [id number] Drug Allergy Unknown N/ A 01/19/2009 Medications Problems Date Dx Coded Attending Type Code Diagnosis Diagnosed By 11/07/2014 TIMMY RUTLEDGE MD Ot 459.81 VENOUS INSUFFICIENCY NOS 11/07/2014 TIMMY RUTLEDGE MD Ot 692.9 DERMATITIS NOS 11/07/2014 TIMMY RUTLEDGE MD Ot 729.81 SWELLING OF LIMB 12/09/2014 SANTOS FONG DOI Ot 038.9 SEPTICEMIA NOS 12/09/2014 FILEMON FONG DO Ot 041.49 OTHER AND UNSPECIFIED ESCHERICHIA COLI [ 12/09/2014 AJIT VILLEDA FILEMON Ot 401.9 HYPERTENSION NOS 12/09/2014 SANTOS FONG DOI Ot 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 12/09/2014 FILEMON FONG DO Ot 599.0 URIN TRACT INFECTION NOS 12/09/2014 FILEMON FONG DO Ot 788.30 UNSPECIFIED URINARY INCONTINENCE 12/09/2014 FILEMON FONG DO Ot 995.91 SEPSIS 12/18/2014 TIMMY RUTLEDGE MD Ot 038.9 SEPTICEMIA NOS 12/18/2014 TIMMY RUTLEDGE MD Ot 041.49 OTHER AND UNSPECIFIED ESCHERICHIA COLI [ 12/18/2014 TIMMY RUTLEDGE MD Ot 401.9 HYPERTENSION NOS 12/18/2014 TIMMY RUTLEDGE MD Ot 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 12/18/2014 TIMMY RUTLEDGE MD Ot 599.0 URIN TRACT INFECTION NOS 12/18/2014 TIMMY RUTLEDGE MD Ot 788.30 UNSPECIFIED URINARY INCONTINENCE 12/18/2014 TIMMY RUTLEDGE MD Ot 995.91 SEPSIS 12/18/2014 TIMMY RUTLEDGE MD Ot V03.82 PROPHYLACTIC VACC AGAINST STREPTOCOCCUS 12/18/2014 MATY ZHANG TIMMY Sanchez Ot V04.81 ND FOR PROPHYLACTIC VACCIN AND INOCULATI 03/01/2016 FILEMON FONG DO Ot E86.0 DEHYDRATION 03/01/2016 FILEMON FONG DO Ot F32.9 MAJOR DEPRESSIVE DISORDER, SINGLE EPISOD 03/01/2016 FILEMON FONG DO Ot I12.9 HYPERTENSIVE CHRONIC KIDNEY DISEASE W ST 03/01/2016 SANTOS FONG DOI Ot N10 ACUTE TUBULO-INTERSTITIAL NEPHRITIS 03/01/2016 SANTOS FONG DOI Ot N13.9 OBSTRUCTIVE AND REFLUX UROPATHY, UNSPECI 03/01/2016 SANTOS FONG DOI Ot N18.9 CHRONIC KIDNEY DISEASE, UNSPECIFIED 03/01/2016 SANTOS FONG DOI Ot N40.1 ENLARGED PROSTATE WITH LOWER URINARY TRA 03/01/2016 FILEMON FONG DO Ot R40.0 SOMNOLENCE 03/01/2016 SANTOS FONG DOI Ot Z66 DO NOT RESUSCITATE 03/01/2016 FILEMON FONG DO Ot Z90.79 ACQUIRED ABSENCE OF OTHER GENITAL ORGAN( 12/23/2016 ANDREW ZHANG FACC, ALI FACP CCDS Ot F03.90 UNSPECIFIED DEMENTIA WITHOUT BEHAVIORAL 12/23/2016 ANDREW ZHANG FACC, ALI FACP CCDS Ot 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, DEFINED IN [place] 12/23/2016 ANDREW ZHANG FACC, ALI FACP CCDS Ot H91.90 UNSPECIFIED HEARING LOSS, UNSPECIFIED EA 12/23/2016 ANDREW ZHANG FACC, ALI FACP CCDS Ot I10 ESSENTIAL (PRIMARY) HYPERTENSION 12/23/2016 ANDREW ZHANG FACC, ALI FACP CCDS Ot 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 12/23/2016 ANDREW ZHANG FACC, ALI FACP CCDS Ot K21.9 GASTRO-ESOPHAGEAL REFLUX DISEASE WITHOUT 12/23/2016 ANDREW ZHANG FACC, ALI FACP CCDS Ot M19.90 UNSPECIFIED OSTEOARTHRITIS, UNSPECIFIED 12/23/2016 ANDREW ZHANG FACC, ALI FACP CCDS Ot N28.9 DISORDER OF KIDNEY AND URETER, UNSPECIFI 12/23/2016 ANDREW ZHANG FACC, ALI FACP CCDS Ot N39.0 URINARY TRACT INFECTION, SITE NOT SPECIF 12/23/2016 ANDREW ZHANG FACC, ALI FACP CCDS Ot N40.0 BENIGN PROSTATIC HYPERPLASIA WITHOUT LOW 12/23/2016 ANDREW ZHANG [facility] CCDS Ot R53.1 WEAKNESS 12/23/2016 ANDREW ZHANG [facility] CCDS Ot Z66 DO NOT RESUSCITATE 01/30/2017 JOHN GERMAN MD Ot N39.0 URINARY TRACT INFECTION, SITE NOT SPECIF 02/02/2017 DANUTA GRAFF APRN Ot I50.9 HEART FAILURE, UNSPECIFIED 02/06/2017 JOHN GERMAN MD Ot N39.0 URINARY TRACT INFECTION, SITE NOT SPECIF 02/06/2017 DANUTA GRAFF APRN Ot I50.9 HEART FAILURE, UNSPECIFIED Procedures Results Test Result Range Automated blood complete blood count (hemogram) panel - 12/21/16 03:53 Blood leukocytes automated count (number/volume) 6.5 10*3/ uL 4.3-11.0 Blood erythrocytes automated count (number/volume) 3.56 10*6 /uL 4.35-5.85 Venous blood hemoglobin measurement (mass/volume) 11.8 g/dL 13.3-17.7 Blood hematocrit (volume fraction) 33 % 40-54 Automated erythrocyte mean corpuscular volume 93 [foz_us] 80-99 Automated erythrocyte mean corpuscular hemoglobin (mass per erythrocyte) 33 pg 25-34 Automated erythrocyte mean corpuscular hemoglobin concentration measurement ( mass/volume) 36 g/dL 32-36 Automated erythrocyte distribution width ratio 12.3 % 10.0-14.5 Automated blood platelet count (count/volume) 158 10*3/uL 130-400 Automated blood platelet mean volume measurement 11.1 [foz_ us] 7.4-10.4 Comprehensive metabolic panel - 12/21/16 03:53 Serum or plasma sodium measurement (moles/volume) 140 mmol/ L 135-145 Serum or plasma potassium measurement (moles/volume) 3.3 mmol/L 3.6-5.0 Serum or plasma chloride measurement (moles/volume) 108 mmol /L 98-107 Carbon dioxide 21 mmol/L 21-32 Serum or plasma anion gap determination (moles/volume) 11 mmol/L 5-14 Serum or plasma urea nitrogen measurement (mass/volume) 28 mg/dL 7-18 Serum or plasma creatinine measurement (mass/volume) 0.95 mg /dL 0.60-1.30 Serum or plasma urea nitrogen/creatinine mass ratio 29 NRG Serum or plasma creatinine measurement with calculation of estimated glomerular filtration rate > NRG Serum or plasma glucose measurement (mass/volume) 83 mg/dL 70-105 Serum or plasma calcium measurement (mass/volume) 8.3 mg/dL 8.5-10.1 Serum or plasma total bilirubin measurement (mass/volume) 0.9 mg/dL 0.1-1.0 Serum or plasma alkaline phosphatase measurement (enzymatic activity/volume) 62 U/L 40-136 Serum or plasma aspartate aminotransferase measurement (enzymatic activity/ volume) 37 U/L 5-34 Serum or plasma alanine aminotransferase measurement (enzymatic activity/volume ) 20 U/L 0-55 Serum or plasma protein measurement (mass/volume) 5.5 g/dL 6.4-8.2 Serum or plasma albumin measurement (mass/volume) 3.0 g/dL 3.2-4.5 Magnesium - 12/21/16 03:53 Magnesium 2.1 mg/dL 1.8-2.4 Lipid 1996 panel - 12/21/16 03:53 Serum or plasma triglyceride measurement (mass/volume) 75 mg /dL <150 Serum or plasma cholesterol measurement (mass/volume) 112 mg /dL < 200 Serum or plasma cholesterol in HDL measurement (mass/volume) 25 mg/dL 40-60 Cholesterol in LDL [mass/volume] in serum or plasma by direct assay 81 mg/dL 1-129 Serum or plasma cholesterol in VLDL measurement (mass/volume) 15 mg/dL 5-40 Complete urinalysis with reflex to culture - 12/21/16 11:45 Urine color determination YELLOW NRG Urine clarity determination SLIGHTLY CLOUDY NRG Urine pH measurement by test strip 5 5- 9 Specific gravity of urine by test strip 1.025 1.016-1.022 Urine protein assay by test strip, semi-quantitative 2+ NEGATIVE Urine glucose detection by automated test strip NEGATIVE NEGATIVE Erythrocytes detection in urine sediment by light microscopy 5+ NEGATIVE Urine ketones detection by automated test strip 2+ NEGATIVE Urine nitrite detection by test strip NEGATIVE NEGATIVE Urine total bilirubin detection by test strip 1+ NEGATIVE Urine urobilinogen measurement by automated test strip (mass/volume) 4 mg/dL NORMAL Urine leukocyte esterase detection by dipstick 3+ NEGATIVE Automated urine sediment erythrocyte count by microscopy (number/high power field) [HPF] NRG Automated urine sediment leukocyte count by microscopy (number/high power field ) [HPF] NRG Bacteria detection in urine sediment by light microscopy FEW NRG Squamous epithelial cells detection in urine sediment by light microscopy 5-10 NRG Crystals detection in urine sediment by light microscopy NONE NRG Casts detection in urine sediment by light microscopy NONE NRG Mucus detection in urine sediment by light microscopy LARGE NRG Complete urinalysis with reflex to culture YES NRG Bacterial urine culture - 12/21/16 11:45 Bacterial urine culture NG NRG Automated blood complete blood count (hemogram) panel - 12/22/16 07:45 Blood leukocytes automated count (number/volume) 5.7 10*3/ uL 4.3-11.0 Blood erythrocytes automated count (number/volume) 3.91 10*6 /uL 4.35-5.85 Venous blood hemoglobin measurement (mass/volume) 13.2 g/dL 13.3-17.7 Blood hematocrit (volume fraction) 36 % 40-54 Automated erythrocyte mean corpuscular volume 93 [foz_us] 80-99 Automated erythrocyte mean corpuscular hemoglobin (mass per erythrocyte) 34 pg 25-34 Automated erythrocyte mean corpuscular hemoglobin concentration measurement ( mass/volume) 36 g/dL 32-36 Automated erythrocyte distribution width ratio 12.1 % 10.0-14.5 Automated blood platelet count (count/volume) 178 10*3/uL 130-400 Automated blood platelet mean volume measurement 10.3 [foz_ us] 7.4-10.4 Comprehensive metabolic panel - 12/22/16 07:45 Serum or plasma sodium measurement (moles/volume) 139 mmol/ L 135-145 Serum or plasma potassium measurement (moles/volume) 3.4 mmol/L 3.6-5.0 Serum or plasma chloride measurement (moles/volume) 109 mmol /L 98-107 Carbon dioxide 22 mmol/L 21-32 Serum or plasma anion gap determination (moles/volume) 8 mmol/L 5-14 Serum or plasma urea nitrogen measurement (mass/volume) 20 mg/dL 7-18 Serum or plasma creatinine measurement (mass/volume) 0.82 mg /dL 0.60-1.30 Serum or plasma urea nitrogen/creatinine mass ratio 24 NRG Serum or plasma creatinine measurement with calculation of estimated glomerular filtration rate > NRG Serum or plasma glucose measurement (mass/volume) 102 mg/dL 70-105 Serum or plasma calcium measurement (mass/volume) 8.7 mg/dL 8.5-10.1 Serum or plasma total bilirubin measurement (mass/volume) 0.8 mg/dL 0.1-1.0 Serum or plasma alkaline phosphatase measurement (enzymatic activity/volume) 68 U/L 40-136 Serum or plasma aspartate aminotransferase measurement (enzymatic activity/ volume) 30 U/L 5-34 Serum or plasma alanine aminotransferase measurement (enzymatic activity/volume ) 21 U/L 0-55 Serum or plasma protein measurement (mass/volume) 6.1 g/dL 6.4-8.2 Serum or plasma albumin measurement (mass/volume) 3.3 g/dL 3.2-4.5 Whole blood basic metabolic panel - 12/23/16 05:25 Serum or plasma sodium measurement (moles/volume) 140 mmol/ L 135-145 Serum or plasma potassium measurement (moles/volume) 3.4 mmol/L 3.6-5.0 Serum or plasma chloride measurement (moles/volume) 111 mmol /L 98-107 Carbon dioxide 19 mmol/L 21-32 Serum or plasma anion gap determination (moles/volume) 10 mmol/L 5-14 Serum or plasma urea nitrogen measurement (mass/volume) 15 mg/dL 7-18 Serum or plasma creatinine measurement (mass/volume) 0.73 mg /dL 0.60-1.30 Serum or plasma urea nitrogen/creatinine mass ratio 21 NRG Serum or plasma creatinine measurement with calculation of estimated glomerular filtration rate > NRG Serum or plasma glucose measurement (mass/volume) 90 mg/dL 70-105 Serum or plasma calcium measurement (mass/volume) 8.3 mg/dL 8.5-10.1 Complete urinalysis with reflex to culture - 01/27/17 16:45 Urine color determination YELLOW NRG Urine clarity determination CLEAR NRG Urine pH measurement by test strip 5 5- 9 Specific gravity of urine by test strip 1.025 1.016-1.022 Urine protein assay by test strip, semi-quantitative 2+ NEGATIVE Urine glucose detection by automated test strip NEGATIVE NEGATIVE Erythrocytes detection in urine sediment by light microscopy 1+ NEGATIVE Urine ketones detection by automated test strip NEGATIVE NEGATIVE Urine nitrite detection by test strip NEGATIVE NEGATIVE Urine total bilirubin detection by test strip 1+ NEGATIVE Urine urobilinogen measurement by automated test strip (mass/volume) 1 mg/dL NORMAL Urine leukocyte esterase detection by dipstick 1+ NEGATIVE Automated urine sediment erythrocyte count by microscopy (number/high power field) RARE NRG Automated urine sediment leukocyte count by microscopy (number/high power field ) [HPF] NRG Bacteria detection in urine sediment by light microscopy NEGATIVE NRG Squamous epithelial cells detection in urine sediment by light microscopy NONE NRG Crystals detection in urine sediment by light microscopy NONE NRG Casts detection in urine sediment by light microscopy NONE NRG Mucus detection in urine sediment by light microscopy LARGE NRG Complete urinalysis with reflex to culture NO NRG Amorphous sediment detection in urine sediment by light microscopy FEW STEVE URATES NRG Complete urinalysis with reflex to culture - 02/06/17 19:20 Urine color determination YELLOW NRG Urine clarity determination CLEAR NRG Urine pH measurement by test strip 5 5- 9 Specific gravity of urine by test strip 1.025 1.016-1.022 Urine protein assay by test strip, semi-quantitative 1+ NEGATIVE Urine glucose detection by automated test strip NEGATIVE NEGATIVE Erythrocytes detection in urine sediment by light microscopy 1+ NEGATIVE Urine ketones detection by automated test strip NEGATIVE NEGATIVE Urine nitrite detection by test strip NEGATIVE NEGATIVE Urine total bilirubin detection by test strip NEGATIVE NEGATIVE Urine urobilinogen measurement by automated test strip (mass/volume) NORMAL NORMAL Urine leukocyte esterase detection by dipstick 1+ NEGATIVE Automated urine sediment erythrocyte count by microscopy (number/high power field) [HPF] NRG Automated urine sediment leukocyte count by microscopy (number/high power field ) [HPF] NRG Bacteria detection in urine sediment by light microscopy NONE NRG Crystals detection in urine sediment by light microscopy NONE NRG Casts detection in urine sediment by light microscopy NONE NRG Mucus detection in urine sediment by light microscopy SMALL NRG Complete urinalysis with reflex to culture NO NRG Encounters ACCT No. Visit Date/Time Discharge Status Pt. Type Provider Facility Loc./Unit Complaint [id number] 02/06/2017 03:35:00 2016 08:20:00 DIS Emergency DOROTA MUÑOZ DO [facility] ER FALL LAC [id number] 12/20/2016 15:30:00 2016 11:11:00 DIS Inpatient ANDREW ZHANG FACC, GEOVANNI JETT CCDS [facility] 4TH ACUTE IA [id number] 02/24/2016 10:24:00 2015 14:35:00 DIS Inpatient AJIT VILLEDASANTOSI [facility] 4TH UTI AMS [id number] 12/09/2014 10:03:00 2014 15:20:00 DIS Inpatient TIMMY RUTLEDGE MD [facility] 4TH SWB-UROSEPSIS,LSUKOCYTOSIS,FEVER [id number] 12/03/2014 17:35:00 2014 10:02:00 DIS Inpatient FILEMON FONG DO [facility] 4TH UROSEPSIS,LSUKOCYTOSIS,FEVER [id number] 12/03/2014 14:49:00 2014 23:59:59 CLS Preadmit TIMMY RUTLEDGE MD [facility] REHAB [id number] 11/07/2014 14:39:00 2013 18:32:00 DIS Emergency TIMMY RUTLEDGE MD [facility] ER RETAINING FLUID [id number] 02/06/2017 19:38:00 ACT Outpatient JOHN GERMAN MD [facility] CVS N39.0, R41.82, R53.1 [id number] 02/02/2017 11:24:00 ACT Outpatient DANUTA GRAFF APRN [facility] RAD KAROLINE,CHACORTA [id number] 01/27/2017 17:49:00 ACT Outpatient JOHN GERMAN MD [facility] CVS UTI
[2017-02-26] MEDS ORDERED: FURO20TA4 PO (14:27)
[2017-02-26] MEDS ORDERED: POTA10TA10 PO (14:27)
[2017-02-27] MEDS ORDERED: ENAL10TA PO (10:37)
[2017-02-27] MEDS ORDERED: ACID1TAB5 PO (10:37)
[2017-02-27] MEDS ORDERED: NYST15CR TP (10:37)
[2017-02-27] MEDS ORDERED: ACET-93 PO (10:37)
[2017-02-27] MEDS ORDERED: CLOP75TA28 PO (10:37)
[2017-02-27] MEDS ORDERED: ASPI-999 PO (10:37)
[2017-02-27] MEDS ORDERED: METO-333 PO (10:37)
[2017-02-27] MEDS ORDERED: ATOR20TA66 PO (10:37)
[2017-03-01] MEDS ORDERED: LORA2ORA PO (08:54)
[2017-03-01] MEDS ORDERED: MORP100S3 PO (08:54)
== END 2017-02-06 08:20 | disposition home or self-care (01) ==
LOC: EDUNIT# 03:34 → ER 03:35
DX: S01.511A Laceration without foreign body of lip, initial encounter (principal); S60.222A Contusion of left hand, initial encounter; S80.02XA Contusion of left knee, initial encounter; M85.842 Other specified disorders of bone density and structure, left hand; M19.042 Primary osteoarthritis, left hand; I10 Essential (primary) hypertension; Z79.82 Long term (current) use of aspirin; Z79.02 Long term (current) use of antithrombotics/antiplatelets; Z79.899 Other long term (current) drug therapy; W06.XXXA Fall from bed, initial encounter; Y92.013 Bedroom of single-family (private) house as the place of occurrence of the external cause; Y99.8 Other external cause status
CPT/HCPCS: 70450; 70486; 72125; 73130; 73562

== ENCOUNTER → 2017-02-06 | Outpatient (CLI) | payer MEDICARE ==
[2017-02-06 19:43] LABS: BILIRUBIN,URINE NEGATIVE (NEGATIVE); KETONES,URINE NEGATIVE (NEGATIVE); LEUKOCYTE ESTERASE ,URINE 1+ (NEGATIVE); NITRITE,URINE NEGATIVE (NEGATIVE); PH,URINE 5 (5-9); PROTEIN,URINE 1+ (NEGATIVE); UROBILINOGEN,URINE NORMAL (NORMAL)
[2017-02-06 19:57] LABS: WBC,URINE 0-2 /HPF
== END ==
LOC: CVS 19:38
PROVIDERS: ATTEND Family Medicine
DX: N39.0 Urinary tract infection, site not specified (principal); R41.82 Altered mental status, unspecified; R53.1 Weakness
CPT/HCPCS: 81000